=== PATIENT | male | born 1955 | race Caucasian/White ===

== ENCOUNTER → 2020-10-05 19:49 | Outpatient (ROUT) | payer OTHER, SELFPAY ==
[2020-10-05 20:19] LABS: Add Manual Diff / Slide Review NO; Basophils Absolute Auto 0 /uL (0-100); Basophils Percent Auto 0.7 % (0-2); Eosinophils Absolute Auto 100 /uL (0-450); Hematocrit 41.8 % (41-53); Hemoglobin 13.9 g/dL (13.5-17.5); Lymphocytes Absolute Auto 1200 /uL (1100-4500); Lymphocytes Percent Auto 21.9 % (25-40); Mean Corpuscular HGB Conc 33.4 % (30-36); Mean Corpuscular Hemoglobin 30.8 PG (26-34); Mean Corpuscular Volume 92.2 fL (80-100); Monocytes Absolute Auto 700 /uL (0-900); Monocytes Percent Auto 11.9 % (3-14); Neutrophils Absolute Auto 3500 /uL (1500-7000); Neutrophils Percent Auto 63.5 % (50-75); Platelet Count 234 X10^3/uL (150-400); Red Blood Cell Count 4.53 X10^6/uL (4.5-5.9); Red Cell Distribution Width 12.5 % (11.6-14.8); White Blood Cell Count 5.6 X10^3/uL (4.5-11.0)
[2020-10-05 20:24] LABS: Alanine Aminotransferase 18 IU/L (<50); Albumin 4.4 g/dL (3.5-5.0); Albumin Globulin Ratio 1.7 (1.0-2.8); Alkaline Phosphatase 50 U/L (38-126); Aspartate Aminotransferase 24 IU/L (17-59); Blood Urea Nitrogen 22 mg/dL (9-20); Calcium 9.6 mg/dL (8.4-10.2); Carbon Dioxide 32 mmol/L (22-32); Chloride 103 mmol/L (98-107); Estimated Glomerular Filt Rate > 60.0 mL/min (>60); Globulin 2.6 g/dL (1.7-4.1); Glucose 93 mg/dL (80-110); HEMOLYSIS < 15 (0-50); Potassium 4.2 mmol/L (3.4-5.1); Sodium 139 mmol/L (137-145)
== END ==
PROVIDERS: Family Provider Internal Medicine; PCP Internal Medicine; Visit Provider Internal Medicine
DX: C85.97 Non-Hodgkin lymphoma, unspecified, spleen (principal); R19.04 Left lower quadrant abdominal swelling, mass and lump
CPT/HCPCS: 80053; 85025

== ENCOUNTER → 2020-10-12 10:47 | Outpatient (CLI) | payer OTHER, SELFPAY ==
--- NOTE | 2020-10-12 | DI.CT.S_ITS ---
PROCEDURE: CT ABDOMEN PELVIS W CON INDICATIONS: Left lower quadrant abdominal swelling, mass TECHNIQUE: After the administration of oral and intravenous contrast, 5 mm thick sections acquired from the diaphragms to the symphysis. 5 mm thick coronal and sagittal reformats were performed. For radiation dose reduction, the following was used: automated exposure control, adjustment of mA and/or kV according to patient size. COMPARISON: [facility], PET/[facility] WHOLE BODY EXTENDED, 12/21/2012, 11:27. [facility], CT, CHEST/ABD/PEL WITH CONTRAST, 01/30/2014, 9:01. [facility], CT, NECK/CHEST/ABD/PEL W CONTRAST, 09/18/2014, 10:14. [facility], CT, ABDOMEN/PELVIS WITH CONTRAST, 08/19/2013, 7:58. FINDINGS: Image quality: Excellent. ABDOMEN: Lung bases: Lung bases are clear. Heart size is normal. Small hiatal hernia. Solid organs: Liver is normal in size and enhancement. Gallbladder is normal. Biliary system is non-dilated. Pancreas enhances normally. Spleen is normal in size and enhancement. No adrenal nodules. Kidneys are normal in size and enhancement, without hydronephrosis. Peritoneum and bowel: There is proximal small bowel wall thickening involving jejunum. No CT findings to suggest small bowel obstruction. There is a moderate amount of stool in colon. A small amount of free fluid is present. No free air. Nodes and vessels: There is marked mesenteric lymphadenopathy with a large bilobed conglomerate mass measuring 5.4 cm AP x 8.7 cm transverse x 11.4 cm cephalocaudal. Numerous smaller mesenteric lymph nodes are noted. There is also retroperitoneal lymphadenopathy. For example, there is a 2.5 x 52.4 cm aortocaval lymph node. There is bilateral iliac lymphadenopathy. For example, a 1.7 cm right internal iliac lymph node is identified. There is a 1.5 cm left proximal external iliac lymph node. Bilateral distal external iliac lymph nodes are seen, measuring 1.6 cm on the right and 1.2 cm on the left. No retroperitoneal or mesenteric adenopathy. Aorta and inferior vena cava are normal in caliber. Miscellaneous: No ventral hernias. PELVIS: Genitourinary: Bladder wall thickness is normal. Prostate is prominent. Miscellaneous: No inguinal hernias. A borderline sized right inguinal lymph node measures 1.2 x 0.8 cm. Bones: No suspicious bony lesions. No vertebral body compression fractures. IMPRESSION: 1. Extensive lymphadenopathy in mesentery, retroperitoneum, and bilateral iliac lymph node chains consistent with recurrent lymphoma. The largest pro mass is seen in the mesentery measuring 5.4 x 8.7 x 11.4 cm. A borderline sized right inguinal lymph node is indeterminate. 2. There is proximal small bowel wall thickening involving jejunum. No findings to suggest small bowel obstruction. 3. Small amount of ascites. Dictated by: Kristina Carter M.D. on 10/12/2020 at 17:48 Approved by: Kristina Carter M.D. on 10/12/2020 at 18:30
== END ==
PROVIDERS: Family Provider Internal Medicine; PCP Internal Medicine; Referring Provider Internal Medicine; Visit Provider Internal Medicine
DX: R59.0 Localized enlarged lymph nodes (principal); R18.8 Other ascites
CPT/HCPCS: 74177; Q9967

== ENCOUNTER 2020-11-02 09:39 | Outpatient (CLI) | payer OTHER, SELFPAY ==
[2020-11-02] VITALS (9 sets, daily range): BP systolic 125–156; BP diastolic 76–96; PULSE 61–71; RESP 15–32; TEMP 36.1–36.4; O2SAT 96–99; BMI 26.8
[2020-11-02 10:04] LABS: Add Manual Diff / Slide Review NO; Basophils Absolute Auto 0 /uL (0-100); Basophils Percent Auto 0.5 % (0-2); Eosinophils Absolute Auto 100 /uL (0-450); Eosinophils Percent Auto 2.6 % (2-4); Hematocrit 40.6 % (41-53); Lymphocytes Absolute Auto 1000 /uL (1100-4500); Lymphocytes Percent Auto 21.6 % (25-40); Mean Corpuscular HGB Conc 34.4 % (30-36); Mean Corpuscular Hemoglobin 31.5 PG (26-34); Mean Corpuscular Volume 91.3 fL (80-100); Monocytes Absolute Auto 600 /uL (0-900); Neutrophils Absolute Auto 3000 /uL (1500-7000); Neutrophils Percent Auto 63.3 % (50-75); Platelet Count 210 X10^3/uL (150-400); Red Blood Cell Count 4.44 X10^6/uL (4.5-5.9); Red Cell Distribution Width 12.7 % (11.6-14.8); White Blood Cell Count 4.7 X10^3/uL (4.5-11.0)
[2020-11-02 10:08] LABS: Prothrombin Time 11.6 SECONDS (10.1-12.7)
[2020-11-02 10:22] LABS: Alanine Aminotransferase 18 IU/L (<50); Albumin 4.4 g/dL (3.5-5.0); Albumin Globulin Ratio 1.5 (1.0-2.8); Alkaline Phosphatase 50 U/L (38-126); Aspartate Aminotransferase 24 IU/L (17-59); BUN Creatinine Ratio 20.9 (6-22); Bilirubin Total 0.8 mg/dL (0.2-1.3); Blood Urea Nitrogen 19 mg/dL (9-20); Calcium 9.3 mg/dL (8.4-10.2); Carbon Dioxide 34 mmol/L (22-32); Chloride 103 mmol/L (98-107); Estimated Glomerular Filt Rate > 60.0 mL/min (>60); Glucose 109 mg/dL (80-110); HEMOLYSIS < 15 (0-50); Sodium 139 mmol/L (137-145); Total Protein 7.4 g/dL (6.3-8.2)
--- NOTE | 2020-11-02 11:05 | DI.CT.S_ITS ---
PROCEDURE: CT BIOPSY ABDOMEN PERCUTANEOUS Sedation analgesia for 30 minutes. INDICATIONS: LOCALIZED ENLARGED LYMPHNODES TECHNIQUE: The indications, alternatives, benefits, risks, and possible complications of the procedure were communicated to the patient. Informed written consent from the patient was obtained and placed in the chart. Continuous EKG and hemodynamic monitoring was started by trained personnel. The patient was brought to the CT suite and biochemical development engineer spiral CT imaging was performed with localization grid. The appropriate site for percutaneous access to the biopsy target was marked, was prepped and draped sterilely, and was infused with local anaesthesia. Under CT guidance, a core biopsy trocar and needle set was advanced to the biopsy target, and specimen(s) were obtained. The trocar and needle were then removed, and the patient was sent for post-procedure monitoring. COMPARISON: None. FINDINGS: Biopsy site: Left anterior peritoneal space near the peritoneal margin anteriorly. Needle: 18 gauge coaxial Temno kit Number of passes: . Four passes for histology into formalin, 2 passes for flow cytometry into RPMI media. Medications: 1% lidocaine for local anaesthesia. IV Fentanyl and Versed for conscious sedation for 30 minutes (see nursing record). Complications: None. IMPRESSION: Successful CT-guided biopsy of the anterior peritoneal mass on the left in this patient with prior history of lymphoma and presumed additional recurrent lymphoma at this time . Dictated by: Colt Jay M.D. on 11/02/2020 at 15:03 Approved by: Colt Jay M.D. on 11/02/2020 at 15:06
[2020-11-02] MEDS: MIDAZOLAM 2 MG/2 ML VIAL IV (11:29)
[2020-11-02] MEDS: fentaNYL 100 MCG/2 ML INJ IV (11:29)
[2020-11-02 12:06] LABS: Prostate Specific Antigen 1.54 ng/mL (0.10-4.00)
--- NOTE | 2020-11-02 12:07 | SUR.PHASEII ---
pt arrived on stretcher from DI. Bandaid CDI. 5lb sand bag on top of site. Will remain supine for 2hr with sandbag in place. VSS will monitor and on cont pulse ox. able to advance to Clear liquid diet at 1300. Hct order to be drawn at 1400.
--- NOTE | 2020-11-02 12:40 | SUR.PHASEII ---
pt in stable condition, vss. pt laying supine in bed, bed in lowest position and call light within reach of pt. Band-aid observed to be c/d/i. pt appears comfortable at this time.
--- NOTE | 2020-11-02 14:06 | SUR.PHASEII ---
LAB HERE FOR BLOOD DRAW, PT TOLERATING JUICE, BANDAID REMAINS DRY AND INTACT.
[2020-11-02 14:23] LABS: Hematocrit 40.2 % (41-53)
== END 2020-11-02 15:00 | disposition home or self-care (01) ==
PROVIDERS: Radiology Diagnostic Radiology; PCP Internal Medicine; Referring Provider Internal Medicine; Visit Provider Internal Medicine
PROC: BR2CZZZ Computerized Tomography (CT Scan) of Pelvis (ICD-10-PCS; CPT 77012; principal; 2020-11-02 11:00)
DX: R59.0 Localized enlarged lymph nodes (principal)
CPT/HCPCS: 36415; 49180; 77012; 80053; 84153; 85014; 85025; 85610; J2250; J3010

== ENCOUNTER → 2020-11-30 10:26 | Outpatient (CLI) | payer OTHER, SELFPAY ==
[2020-11-30 13:01] LABS: COVID19 -Nasal RAPID Negative (Negative)
== END ==
PROVIDERS: PCP Internal Medicine; Visit Provider Surgery
DX: Z20.822 Contact with and (suspected) exposure to COVID-19 (principal)
CPT/HCPCS: 87635; C9803

== ENCOUNTER 2020-12-01 12:25 | Day surgery (SDC) | payer OTHER, SELFPAY ==
[2020-12-01] VITALS (7 sets, daily range): BP systolic 112–145; BP diastolic 72–92; PULSE 60–70; RESP 10–16; TEMP 36.4–36.7; O2SAT 95–100; BMI 26.6
--- NOTE | 2020-12-01 | DI.RAD.S_ITS ---
PROCEDURE: XR CHEST 1V INDICATIONS: PORT A CATH TECHNIQUE: One view of the chest was acquired. COMPARISON: None. FINDINGS: Surgical changes and devices: Port-A-Cath in normal position from right-sided approach. The tip extends into the atrial caval junction. Lungs and pleura: Lungs are clear. No pleural effusions or pneumothorax. Mediastinum: Mediastinal contours appear normal. Heart size is normal. Bones and chest wall: No suspicious bony lesions. Overlying soft tissues appear unremarkable. IMPRESSION: Atrial caval junction Port-A-Cath positioning, from right-sided approach. Dictated by: Colt Jay M.D. on 12/02/2020 at 8:38 Approved by: Colt Jay M.D. on 12/02/2020 at 8:39
[2020-12-01] MEDS: LACTATED RINGERS 1,000 ML 100 ML IV (13:07)
--- NOTE | 2020-12-01 15:05 | P.HP_ITS ---
History of Present Illness History of Present Illness Date Patient Seen: 12/01/20 Time Patient Seen: 15:05 Chief complaint: PORT-A-CATH PLACEMENT Narrative: 65-year-old man with recurrent lymphoma referred for Port-A-Cath placement by Oncology. The he developed left-sided abdominal pain early in 2020 CT scan of the abdomen pelvis demonstrated intra-abdominal lymphadenopathy and ultimately biopsy was performed which demonstrates follicular lymphoma. He is scheduled to begin chemotherapy next week. He has never had a previous indwelling venous catheter. He has complaint of chronic abdominal pain. He is not on anticoagulation or anti-platelet medication. 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 Hx of inguinal herniorrhaphy Family & Social History Family History Other Axillary mass Family history of breast cancer Family history of mastectomy Family hx of lung cancer Social History: household members spouse Tobacco & Substance use: Smoking Status Never smoker alcohol intake current alcohol intake frequency a few times a month Substance Use Type does not use Meds Home Medications and Allergies Home Medications Medication Instructions Recorded Confirmed Type acetaminophen [Tylenol] 1,000 mg PO QD-BID 10/21/20 12/01/20 History cholecalciferol (vitamin D3) 25 mcg PO DAILY 10/21/20 12/01/20 History [Vitamin D3] glucosamine [id number] 1 tab DAILY 10/21/20 12/01/20 History ibuprofen 400 mg PO Q6H PRN 10/21/20 12/01/20 History multivitamin 1 tab DAILY 10/21/20 12/01/20 History allopurinol 300 mg PO DAILY #30 tab 11/24/20 12/01/20 Rx diphenhydramine HCl [Benadryl] 25 mg PO NOW #1 cap 11/24/20 12/01/20 Rx olanzapine 5 - 10 mg PO Q12H PRN #25 tab 11/24/20 12/01/20 Rx ondansetron HCl 8 mg PO Q8H PRN #30 tab 11/24/20 12/01/20 Rx Allergies Allergy/AdvReac Type Severity Reaction Status Date / Time No Known Drug Allergies Allergy Verified 11/02/20 10:24 Review of Systems Review of Systems ROS: Yes All systems reviewed with the patient and are negative except as otherwise documented Exam Vital Signs (past 8 hours): - 12/01/20 12:51 Temperature 98.0 F Pulse Rate 70 Respiratory Rate 16 Blood Pressure 145/85 H Pulse Oximetry 99 Oxygen Delivery Method Room Air Narrative Exam Narrative: General-no acute distress, adult male HEENT-moist mucous membranes, no scleral icterus Neck-supple, full range of motion Chest- non labored respirations, clear to auscultation bilaterally Cardiac-regular rate no peripheral edema Abdomen-soft nondistended Extremities-warm, well perfused Neurological-alert and oriented, no focal deficits Assessment & Plan Assessment & Plan narrative: 65-year-old man with recurrent follicular lymphoma here for Port-A-Cath placement. We discussed the technical nature of the Port-A-Cath placement. Procedural risks including bleeding infection embolism pneumothorax device malfunction were discussed. His questions have been answered he is in agreement with this plan. Quality MIPS - Admit Advanced Care Plan / Current Medications Measures: #47 ? Advanced Care Plan Clinician documentation instruction: document at admission. [] I confirmed that the patient's Advance Care Plan is present, code status is documented, or surrogate decision maker is listed in the patient?s medical recor d. [SATISFIES MIPS PERFORMANCE] If Yes, Stop Here [] The patient?s Advance Care plan is not present because: (select) [MIPS PERFORMANCE EXCEPTION/EXCLUSION] [] I confirmed today that the patient does not wish or was not able to name a surrogate decision maker or provide an Advance Care Plan. [] Hospice care is currently being provided or has been provided this calendar year [] I did NOT confirm today the presence of an Advance Care Plan or surrogate decision maker documented within the patient's medical record. [DOES NOT SATISFY MIPS PERFORMANCE] #130 - Documentation of Current Medications in the Medical Record Clinician documentation instruction: use macro the first time you see a patient. [] I have utilized all available immediate resources to obtain, update, or review the patient?s current medications. [SATISFIES MIPS PERFORMANCE] If Yes, Stop Here [] The patient is not eligible for medication reconciliation; the patient is in an emergent medical situation where delaying treatment would jeopardize the patient?s health. [MIPS PERFORMANCE EXCEPTION/EXCLUSION] [] I did NOT confirm, update or review the patient's current list of medications today. [DOES NOT SATISFY MIPS PERFORMANCE] MIPS - CL Central Venous Catheter Placement Measure: #76 ? Prevention of Central Venous Catheter (CVC) ? Related Bloodstream Infection Clinician documentation instruction: use macro every time you place a central line. [] All elements of Maximal Sterile Barrier Technique, including hand hygiene, skin prep, and sterile ultrasound technique (if used) were followed. [SATISFIES MIPS PERFORMANCE] If Yes, Stop Here [] If ?No?, the medical reason all elements were NOT used for medical reason [] (ex. emergent condition). [] Maximal Sterile Barrier Technique was not followed, no reason provided [DOES NOT SATISFY MIPS PERFORMANCE] MIPS - DC Heart Failure Measures: #5 - Heart Failure (HF): Angiotensin-Converting Enzyme (DEONDRE) Inhibitor or Angiotensin Receptor Jennifer (ARB) Therapy for Left Ventricul ar Systolic Dysfunction (LVSD) and #8 - Heart Failure (HF): Beta-Jennifer Therapy for Left Ventricular Systolic Dysfunction (LVSD) Clinician documentation instruction: use macro at every CHF discharge. [] The patient has current or prior documentation of left ventricular ejection fraction (LVEF) less than 40%, or moderate or severely depressed left ventricular systolic function. Answer both: [SATISFIES MIPS PERFORMANCE] [] The patient was prescribed or already taking an Angiotensin-Converting Enzyme (DEONDRE) Inhibitor, or Angiotensin Receptor Jennifer (ARB). [] The patient was prescribed or already taking a beta-jennifer. If Yes to Both, Stop Here [] Patient not prescribed/taking: [MIPS PERFORMANCE EXCEPTION/EXCLUSION] [] DEONDRE or ARB for medical/patient/system reason(s) including [] (ex. allergy, intolerance, contraindication) [] Beta-jennifer for medical/patient/system reason(s) including [] (ex. allergy, intolerance, contraindication) [] Patient not prescribed/taking: [DOES NOT SATISFY MIPS PERFORMANCE] [] DEONDRE or ARB, no reason given [] Beta-jennifer, no reason given
[2020-12-01] MEDS: CEFAZOLIN 2 GM/100 ML FROZ.PIGGY IV (15:38)
--- NOTE | 2020-12-01 16:03 | SUR.OPER ---
Supine on padded OR bed, head on gel donut, left arm secured on padded arm boards at <90 degrees abduction, right arm padded and tucked at side, legs uncrossed, safety belt at thigh, tape over blanket over lower legs.
[2020-12-01] MEDS: BUPIVACAINE 0.25% (PF) VIAL 30 ML INJ (16:08)
[2020-12-01] MEDS: HEPARIN 5,000 UNIT, SODIUM CHLORIDE 0.9% 50 ML IV (16:10)
[2020-12-01] MEDS: hydrOXYzine pamoate 25 MG CAPSULE PO (16:52)
[2020-12-01] MEDS: HYDROCODONE/ACET 5/325 TABLET 1 TAB PO (16:52)
[2020-12-01] MEDS: ONDANSETRON 4 MG/2 ML INJ IV (16:52)
--- NOTE | 2020-12-01 17:00 | PM.OP.1 ---
Operative Date/Time/Diagnoses Date of procedure: 12/01/20 Time of procedure: 17:00 Pre-op diagnosis: lymphoma Post-op diagnosis: same Procedure & Clinicians Procedure: port a cath placement Same procedure as scheduled: Yes Indications: 65M with lymphoma for port a cath placement Surgeon: Efrain Eng Anesthesia Type: General Operative Notes Findings: tip of cath within the SVC Estimated Blood Loss (mL): 20 Procedure in detail: Patient was brought to the operating room placed supine on table. Bilateral lower extremity compressive devices were applied. General anesthesia was induced and he was intubated with an LMA. He was then prepped and draped in usual sterile fashion. Time-out was performed ensure the correct patient procedure necessary equipment within the operating room. He received 2 g of Ancef prior to incision. Under ultrasound guidance the right internal jugular vein was accessed under direct visualization. The guidewire was then threaded through the needle. Its placement was then confirmed using fluoroscopy. The dilator was then placed over the guidewire. The catheter was then inserted through the sheath. Placement was again confirmed with fluoroscopy. A subcutaneous pocket was made in the right chest wall. The tunneler device was used to move the catheter from the neck to the chest pocket. The port was attached after it was primed with heparined saline. The port was tested to ensure that it flushed easily and had good blood return. The port was then secured to the underlying fascia using interupted 0 Prolene suture. Hemostasis was achieved. The wound was irrigated with sterile saline. The subcutaneous tissues were reapproximated with the 3 0 Vicryl and then skin closed with 4-0 Monocryl. The skin was sealed with Dermabond. Patient tolerated procedure well. The sponge and instrument count at the end operation was correct. Patient emerged from general anesthesia was extubated and taken to the postoperative care unit in stable condition Complications: none Post-operative Condition: stable Disposition: same day surgery
== END 2020-12-01 17:15 | disposition home or self-care (01) ==
PROVIDERS: PCP Internal Medicine; Referring Provider Surgery; Visit Provider Surgery
PROC: (CPT 36561; principal; 2020-12-01 13:45)
DX: C82.93 Follicular lymphoma, unspecified, intra-abdominal lymph nodes (principal)
CPT/HCPCS: 36561; 71045; 76000; 82962; C1788; J0690; J1100; J1644; J2250; J2405; J3010

== ENCOUNTER → 2021-03-01 09:39 | Outpatient (CLI) | payer OTHER, SELFPAY ==
--- NOTE | 2021-03-01 10:53 | DI.CT.S_ITS ---
PROCEDURE: CT CHEST ABD PEL W CON INDICATIONS: Follow-up lymphoma after chemo TECHNIQUE: After the administration of oral and intravenous contrast, axial sections acquired from the supraclavicular neck to the pubic symphysis. Coronal and sagittal reformats were performed. For radiation dose reduction, the following was used: automated exposure control, adjustment of mA and/or kV according to patient size. COMPARISON: [facility], [place] FUSION WHOLE BODY, 10/28/2020, 7:56. [facility], CT, CT ABDOMEN PELVIS W CON, 10/12/2020, 11:53. [facility], CT, CHEST/ABD/PEL WITH CONTRAST, 01/30/2014, 9:01. FINDINGS: CHEST: Lungs: A previously described 5 mm lesion seen in the right middle lobe is grossly unchanged since 10/28/20. Pleura: No pleural effusions or pneumothorax. Heart: Heart size is normal. No pericardial effusion. Coronary artery calcifications are noted. Chest nodes: Normal. Thyroid gland: Normal. Aorta: Normal in size. Pulmonary arteries: Normal. Esophagus: Normal. ABDOMEN: Liver: Nonspecific subcentimeter hypodensity seen in the dome on image 53/2. This is grossly unchanged Gallbladder: Normal. Bile ducts: Normal. Pancreas: Normal. Spleen: Normal. Adrenals: Normal. Kidneys and ureters: Normal. Stomach and duodenum: Normal. Bowel: Normal appendix. No evidence of bowel obstruction. Incidental colonic diverticulosis. Other: No free fluid or air. Abdominal nodes: There is interval improvement in previously seen confluent and large mesenteric and retroperitoneal lymph nodes, for example on image 89/2 2.2 x 2.2 cm residual lymphoid tissue seen previously measured 5.4 x 6.6 cm. Additional patient financial representative aortocaval lymph node on image 79/2 measures 1.1 x 0.77 cm, previously 2.2 x 1.6 cm Aorta and IVC: Normal in size. Ventral wall: Normal. PELVIS: Bladder: Normal. Inguinal region: Small fat containing right inguinal hernia. Pelvic nodes: Normal. Bones: Spondylytic changes and facet arthropathy. No vertebral body compression fracture. Previously described hypermetabolic osseous lesions on the prior PET-CT dated 10/28/20 are not well visualized on the current examination although this could be due to imaging modality and recommend scintigraphic follow-up. IMPRESSION: Interval improvement in diffuse confluent mesenteric and retroperitoneal lymphadenopathy since 10/12/20. Previously described bone lesions on the prior PET-CT are not well seen on the current examination, although recommend scintigraphic follow-up. Dictated by: Ta Martin M.D. on 03/01/2021 at 12:21 Approved by: Ta Martin M.D. on 03/01/2021 at 12:40
== END ==
PROVIDERS: PCP Internal Medicine; Referring Provider Internal Medicine; Visit Provider Internal Medicine
DX: C82.90 Follicular lymphoma, unspecified, unspecified site (principal); R91.1 Solitary pulmonary nodule; I10 Essential (primary) hypertension; K40.90 Unilateral inguinal hernia, without obstruction or gangrene, not specified as recurrent; I25.10 Atherosclerotic heart disease of native coronary artery without angina pectoris; Z92.21 Personal history of antineoplastic chemotherapy
CPT/HCPCS: 71260; 74177

== ENCOUNTER → 2021-08-31 07:24 | Outpatient (CLI) | payer OTHER, SELFPAY ==
[2021-08-31 08:23] LABS: Influenza A - CEPHEID Flu A NEGATIVE (NEGATIVE); Influenza B - CEPHEID Flu B NEGATIVE (NEGATIVE)
[2021-08-31 09:26] LABS: COVID-19 CEPHEID PCR (VTM/NP) POSITIVE (Negative)
== END ==
PROVIDERS: PCP Internal Medicine; Visit Provider Nurse Practitioner Family
DX: Z20.822 Contact with and (suspected) exposure to COVID-19 (principal); R52 Pain, unspecified; R05.9 Cough, unspecified
CPT/HCPCS: 87502; U0003

== ENCOUNTER → 2022-02-15 07:34 | Outpatient (CLI) | payer OTHER, SELFPAY | PROVIDERS: PCP Internal Medicine; Visit Provider Physician Assistant | DX: R21 Rash and other nonspecific skin eruption (principal) | CPT/HCPCS: 87070; 87077; 87147; 87186; 87205 ==

== ENCOUNTER → 2022-03-22 08:13 | Outpatient (CLI) | payer MEDICARE, SELFPAY ==
[2022-03-22 10:32] LABS: Cholesterol 232 mg/dL (140-199); HDL Cholesterol 53 mg/dL (40-60); LDL Cholesterol Calculated 162 mg/dL (<100); Triglycerides 86 mg/dL (35-150)
[2022-03-22 11:04] LABS: TSH w/ Reflex to FT4 1.79 uIU/mL (0.47-4.68)
[2022-03-22 11:06] LABS: Prostate Specific Antigen 2.13 ng/mL (0.10-4.00)
[2022-07-05 08:41] LABS: Add Manual Diff / Slide Review NO; Basophils Absolute Auto 100 /uL (0-100); Basophils Percent Auto 1.2 % (0-2); Eosinophils Absolute Auto 200 /uL (0-450); Eosinophils Percent Auto 3.7 % (2-4); Hematocrit 37.6 % (41-53); Hemoglobin 13.3 g/dL (13.5-17.5); Lymphocytes Absolute Auto 600 /uL (1100-4500); Lymphocytes Percent Auto 11.1 % (25-40); Mean Corpuscular HGB Conc 35.3 % (30-36); Mean Corpuscular Hemoglobin 31.9 PG (26-34); Mean Corpuscular Volume 90.5 fL (80-100); Monocytes Absolute Auto 800 /uL (0-900); Monocytes Percent Auto 15.2 % (3-14); Neutrophils Absolute Auto 3500 /uL (1500-7000); Neutrophils Percent Auto 68.8 % (50-75); Platelet Count 260 X10^3/uL (150-400); Red Blood Cell Count 4.15 X10^6/uL (4.5-5.9); Red Cell Distribution Width 12.4 % (11.6-14.8)
[2022-07-05 08:50] LABS: Alanine Aminotransferase 19 IU/L (<50); Albumin 4.1 g/dL (3.5-5.0); Albumin Globulin Ratio 1.3 (1.0-2.8); Alkaline Phosphatase 66 U/L (38-126); Aspartate Aminotransferase 20 IU/L (17-59); Bilirubin Total 0.9 mg/dL (0.2-1.3); Blood Urea Nitrogen 18 mg/dL (9-20); Calcium 9.3 mg/dL (8.4-10.2); Carbon Dioxide 28 mmol/L (22-32); Chloride 103 mmol/L (98-107); Estimated Glomerular Filt Rate > 60 mL/min (>60); Globulin 3.1 g/dL (1.7-4.1); Glucose 132 mg/dL (80-110); HEMOLYSIS 38 (0-50); Lactate Dehydrogenase 471 U/L (313-618); Sodium 140 mmol/L (137-145); Total Protein 7.2 g/dL (6.3-8.2)
[2022-07-08 13:09] LABS: Beta-2-Microglobulin 1.4 mg/L (0.6-2.4)
== END ==
PROVIDERS: Internal Medicine Medical Oncology; PCP Internal Medicine; Referring Provider Internal Medicine; Visit Provider Internal Medicine
DX: C82.93 Follicular lymphoma, unspecified, intra-abdominal lymph nodes (principal); E78.2 Mixed hyperlipidemia; N40.0 Benign prostatic hyperplasia without lower urinary tract symptoms; Q82.8 Other specified congenital malformations of skin; R59.0 Localized enlarged lymph nodes
CPT/HCPCS: 36415; 80053; 80061; 82232; 83615; 84153; 84443; 85025

== ENCOUNTER → 2023-01-10 10:24 | Outpatient (CLI) | payer MEDICARE, SELFPAY ==
--- NOTE | 2023-01-10 10:25 | DI.CT.S_ITS ---
PROCEDURE: CT CHEST ABD PEL W CON INDICATIONS: lymphoma restaging TECHNIQUE: After the administration of oral and intravenous contrast, axial sections acquired from the supraclavicular neck to the pubic symphysis. Coronal and sagittal reformats were performed. For radiation dose reduction, the following was used: automated exposure control, adjustment of mA and/or kV according to patient size. COMPARISON: [facility], CT, CT CHEST ABD PEL W CON, 03/01/2021, 10:58. FINDINGS: Image quality: Excellent. CHEST: Lower Neck: No enlarged lymph nodes. Thyroid: Within normal limits. Axillae: No enlarged lymph nodes. Chest Wall: Unremarkable. Lungs and Airways: No consolidation or suspicious nodules. Stable juxtapleural nodule in the right middle lobe, presumably an intrapulmonary lymph node. Pleura: No pneumothorax or pleural effusions. Heart: Heart size is normal. No pericardial effusion. Thoracic Vessels: The aorta and pulmonary arteries demonstrate normal size. Mediastinum and Donna: No enlarged lymph nodes. Esophagus: No wall thickening. No hiatal hernia. ABDOMEN: Liver: Subcentimeter hypoattenuating lesion in segment 4A and 7, too small to characterize by CT. These are relatively stable compared with prior. Gallbladder: Unremarkable. Biliary ducts: Unremarkable. Pancreas: Unremarkable. Spleen: Normal size. Adrenal Glands: Unremarkable. Kidneys and Ureters: Unremarkable. Stomach and Bowel: Stomach, small bowel loops, and colon are unremarkable. Peritoneum: Central mesenteric fat stranding, similar to prior. No measurable lymph node. Ventral Wall: No hernia. Abdominal Nodes: No retroperitoneal or mesenteric adenopathy by size criteria. Vessels: Aorta and inferior vena cava are normal in size. PELVIS: Pelvic Organs: Unremarkable. Bladder: Unremarkable. Pelvic Nodes: No enlarged lymph nodes. Miscellaneous: No inguinal hernias are seen. Bones: Unremarkable. IMPRESSION: 1. Stable central mesenteric fat stranding, without measurable lymph node. No lymphadenopathy by size criteria. Dictated by: Obed Umanzor M.D. on 01/10/2023 at 13:29 Approved by: Obed Umanzor M.D. on 01/10/2023 at 13:35
== END ==
PROVIDERS: PCP Internal Medicine; Referring Provider Internal Medicine Medical Oncology; Visit Provider Internal Medicine Medical Oncology
DX: C82.90 Follicular lymphoma, unspecified, unspecified site (principal)
CPT/HCPCS: 71260; 74177; Q9967

== ENCOUNTER → 2023-06-02 08:41 | Outpatient (CLI) | payer MEDICARE, SELFPAY ==
[2023-06-02 10:56] LABS: Cholesterol 213 mg/dL (140-199); HDL Cholesterol 48 mg/dL (40-60); LDL Cholesterol Calculated 152 mg/dL (<100); Triglycerides 65 mg/dL (35-150)
[2023-06-02 11:22] LABS: Prostate Specific Antigen 2.16 ng/mL (0.10-4.00)
== END ==
PROVIDERS: PCP Internal Medicine; Referring Provider Internal Medicine; Visit Provider Internal Medicine
DX: N40.0 Benign prostatic hyperplasia without lower urinary tract symptoms (principal)
CPT/HCPCS: 36415; 80061; 84153

== ENCOUNTER 2024-01-15 01:27 | Emergency (ER) | payer MEDICARE, SELFPAY ==
[2024-01-15] VITALS (9 sets, daily range): BP systolic 140–193; BP diastolic 79–93; PULSE 60–75; RESP 18–25; TEMP 36.1; O2SAT 97–100; BMI 27.9
[2024-01-15] MEDS: ONDANSETRON 4 MG/2 ML INJ IV (01:50)
[2024-01-15 01:51] LABS: Add Manual Diff / Slide Review NO; Basophils Absolute Auto 0 /uL (0-100); Basophils Percent Auto 0.4 % (0-2); Eosinophils Absolute Auto 100 /uL (0-450); Eosinophils Percent Auto 1.2 % (2-4); Hematocrit 44.7 % (41-53); Hemoglobin 15.5 g/dL (13.5-17.5); Lymphocytes Absolute Auto 1800 /uL (1100-4500); Lymphocytes Percent Auto 14.7 % (25-40); Mean Corpuscular HGB Conc 34.8 % (30-36); Mean Corpuscular Hemoglobin 32.3 PG (26-34); Mean Corpuscular Volume 92.8 fL (80-100); Monocytes Absolute Auto 1600 /uL (0-900); Monocytes Percent Auto 12.7 % (3-14); Neutrophils Absolute Auto 8800 /uL (1500-7000); Platelet Count 263 X10^3/uL (150-400); Red Blood Cell Count 4.81 X10^6/uL (4.5-5.9); Red Cell Distribution Width 12.6 % (11.6-14.8); White Blood Cell Count 12.4 X10^3/uL (4.5-11.0)
[2024-01-15 02:01] LABS: Alanine Aminotransferase 35 IU/L (<50); Albumin Globulin Ratio 1.9 (1.0-2.8); Alkaline Phosphatase 80 U/L (38-126); Aspartate Aminotransferase 33 IU/L (17-59); BUN Creatinine Ratio 18.8 (6-22); Bilirubin Total 1.2 mg/dL (0.2-1.3); Blood Urea Nitrogen 18 mg/dL (9-20); Calcium 9.8 mg/dL (8.4-10.2); Carbon Dioxide 19 mmol/L (22-32); Chloride 105 mmol/L (98-107); Estimated Glomerular Filt Rate > 60 mL/min (>60); Globulin 2.6 g/dL (1.7-4.1); Glucose 179 mg/dL (80-110); HEMOLYSIS 29 (0-50); Lipase 127 U/L (23-300); Potassium 3.2 mmol/L (3.4-5.1); Sodium 137 mmol/L (137-145); Total Protein 7.6 g/dL (6.3-8.2)
--- NOTE | 2024-01-15 02:07 | ED_ITS ---
HPI - General Adult General Chief complaint: Abdominal Pain Stated complaint: abd pain, bp 190/100 feverish Time Seen by Provider: 01/15/24 01:38 Source: patient and family Mode of arrival: Wheelchair History of Present Illness HPI narrative: Patient is a 68-year-old male who arrives in the emergency department for abdominal discomfort and nausea high blood pressure and generally not feeling very well. Patient was woken from sleep approximately 1 hour prior to arrival here with the symptoms. Has had hernia repair but that was back when he was less than 12 years old but otherwise no abdominal surgeries. Has not had a bowel movement or urinated since the onset of the symptoms. Describes the pain as in his upper abdomen and right side of his abdomen. Has not tried anything for the symptoms prior to arrival. Related Data Home Medications Medication Instructions Recorded Confirmed ibuprofen 200 mg tablet 400 mg PO Q6H PRN Pain (Scale 10/21/20 05/29/23 Score 4-6) clobetasol 0.05 % topical cream 1 applic topical DAILY 04/13/22 05/29/23 acetaminophen 325 mg capsule 1,000 mg PO QD-BID PRN pain 05/25/22 05/29/23 (Tylenol) cholecalciferol (vitamin D3) 25 25 mcg PO DAILY 05/25/22 05/29/23 mcg (1,000 unit) tablet (Vitamin D3) multivitamin 1 tab PO DAILY 05/25/22 05/29/23 docosahexaenoic acid (dha)-epa 120 1 cap PO DAILY 01/04/23 05/29/23 mg-180 mg capsule (Fish Oil) Allergies Allergy/AdvReac Type Severity Reaction Status Date / Time No Known Drug Allergies Allergy Verified 05/29/23 13:31 Review of Systems Review of Systems Narrative: See HPI ROS Unobtainable: All systems reviewed & are unremarkable except as noted in HPI and below Patient History Medical History Hearing loss, right Eczematous dermatitis Overweight (BMI 25.0-29.9) Rash History of colonic polyps Mixed hyperlipidemia Wears glasses Chronic back pain Tinnitus DJD (degenerative joint disease) Surgical History Anesthesia H/O needle biopsy (~10/2020) Port-A-Cath in place (~11/2020) H/O arthroscopy of right knee (~10/2015) H/O vasectomy Hx of inguinal herniorrhaphy 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 roman catholic (~2002) Family History Brother Cancer Sister Breast cancer History of mastectomy Other Axillary mass Family history of breast cancer Family history of mastectomy Family hx of lung cancer 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 History 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), 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 Smoking Status: Never smoker alcohol intake: current Smoking Status: Never smoker alcohol intake frequency: a few times a month Substance Use Type: does not use Exam Initial Vital Signs Initial Vital Signs: Vital Signs Pulse Rate 67 01/15/24 01:34 Pulse Oximetry 100 01/15/24 01:34 Const General: cooperative and No ill appearing HENMT Head: normal to inspection and normocephalic Resp Effort & Inspection: normal respiratory effort Auscultation: clear to auscultation bilaterally Cardio Rate: regular rate Rhythm: regular rhythm GI Inspection: normal to inspection and non-distended Palpation: soft, No firm, No guarding and tender (Diffuse tenderness) Skin General: no rashes or lesions noted Neuro General: patient alert, patient awake and moves all extremities Speech: speech normal Extrem General: capillary refill normal Course Orders Ordered: ED Orders 01/15/24 01:43 EKG-12 Lead Stat 01/15/24 01:44 Complete Blood Count AUTO DIFF Stat Comprehensive Metabolic Panel Stat ETOH [Ethanol (ETOH)] Stat Lipase Stat 01/15/24 02:08 CT abdomen pelvis w con Stat Ondansetron HCl (Ondansetron 4 Mg Odt) 4 mg PO NOW PRN PRN Reason: Nausea And Vomiting Ondansetron HCl (Ondansetron 4 Mg/2 Ml Inj) 4 mg IV NOW PRN PRN Reason: Nausea And Vomiting Last Admin: 01/15/24 01:50 Dose: 4 mg Documented By: SHANAE Discontinued Medications Sodium Chloride (Normal Saline 0.9%) 1,000 mls @ 1,000 mls/hr IV BOLUS ONE Stop: 01/15/24 03:07 Last Admin: 01/15/24 02:14 Dose: 1,000 mls/hr Documented By: SHANAE Ketorolac Tromethamine (Ketorolac 30 Mg/Ml Vial) 30 mg IV NOW ONE Stop: 01/15/24 02:09 Last Admin: 01/15/24 02:14 Dose: 30 mg Documented By: SHANAE Ondansetron HCl (Ondansetron 4 Mg/2 Ml Inj) 4 mg IV NOW ONE Stop: 01/15/24 02:09 Last Admin: 01/15/24 03:17 Dose: Not Given Pantoprazole Sodium (Pantoprazole 40 Mg Vial) 40 mg IV NOW ONE Stop: 01/15/24 02:10 Last Admin: 01/15/24 02:14 Dose: 40 mg Documented By: SHANAE Vital Signs Vital signs: Vital Signs - 8 hr 01/15/24 01:34 01/15/24 01:35 01/15/24 01:35 Temperature Pulse Rate 67 67 Respiratory Rate Blood Pressure 167/81 H Pulse Oximetry 100 100 Oxygen Delivery Method 01/15/24 01:38 01/15/24 02:00 01/15/24 02:01 Temperature 96.9 F L Pulse Rate 65 63 Respiratory Rate 22 Blood Pressure 167/81 H 193/93 H Pulse Oximetry 100 100 Oxygen Delivery Method Room Air 01/15/24 02:01 01/15/24 02:30 01/15/24 02:31 Temperature Pulse Rate 63 61 60 Respiratory Rate 25 H 23 Blood Pressure Pulse Oximetry 100 99 97 Oxygen Delivery Method 01/15/24 02:31 Temperature Pulse Rate Respiratory Rate Blood Pressure 186/89 H Pulse Oximetry Oxygen Delivery Method Medical Decision Making Lab Data Lab results reviewed: Yes I reviewed the patient's lab results. 01/15/24 01:44 01/15/24 01:44 Labs: Lab Results 01/15/24 Range/Units 01:44 WBC 12.4 H (4.5-11.0) X10^3/uL RBC 4.81 (4.5-5.9) X10^6/uL Hgb 15.5 (13.5-17.5) g/dL Hct 44.7 (41-53) % MCV 92.8 (80-100) fL MCH 32.3 (26-34) PG MCHC 34.8 (30-36) % RDW 12.6 (11.6-14.8) % Plt Count 263 (150-400) X10^3/uL Neut % (Auto) 71.0 (50-75) % Lymph % (Auto) 14.7 L (25-40) % [place] % (Auto) 12.7 (3-14) % Eos % (Auto) 1.2 L (2-4) % Baso % (Auto) 0.4 (0-2) % Neut # (Auto) 8800 H (2642-2942) /uL Lymph # (Auto) 1800 (2982-3707) /uL [place] # (Auto) 1600 H (0-900) /uL Eos # (Auto) 100 (0-450) /uL Baso # (Auto) 0 (0-100) /uL Sodium 137 (137-145) mmol/L Potassium 3.2 L (3.4-5.1) mmol/L Chloride 105 (98-107) mmol/L Carbon Dioxide 19 L (22-32) mmol/L BUN 18 (9-20) mg/dL Creatinine 0.96 (0.66-1.25) mg/dL Estimated GFR > 60 (>60) mL/min BUN/Creatinine Ratio 18.8 (6-22) Glucose 179 H (80-110) mg/dL Calcium 9.8 (8.4-10.2) mg/dL Total Bilirubin 1.2 (0.2-1.3) mg/dL AST 33 (17-59) IU/L ALT 35 (<50) IU/L Alkaline Phosphatase 80 (38-126) U/L Total Protein 7.6 (6.3-8.2) g/dL Albumin 5.0 (3.5-5.0) g/dL Globulin 2.6 (1.7-4.1) g/dL Albumin/Globulin Ratio 1.9 (1.0-2.8) Lipase 127 (23-300) U/L Ethyl Alcohol < 10 ( - 10) mg/dL Imaging Data CT scan - abdomen/pelvis: Radiologist's Impression: Increased attenuation of mesenteric root fact, 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 No other abnormalities identified ECG Data Attestation: I personally reviewed and interpreted this ECG as follows: Interpretation: Sinus rhythm Ventricular rate is 60 Normal axis Normal QRS Normal QTC No ST T wave changes MDM Narrative Medical decision making narrative: After medications here in the emergency department patient's symptoms greatly improved. He was afebrile. His labs are unremarkable. No signs of bowel obstruction or appendicitis or kidney stone. No indication for emergent surgical consultation. 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 We did discuss the findings of the CT scan today. He has been followed by Oncology. There was no indication for antibiotics. Plan will be is to discharge patient home with instructions to start on a proton pump inhibitor for the next 14 days. He can purchase this [id number]. He was given return precautions and follow-up instructions. He expressed understanding and agreement. Discharge Plan Departure Patient Disposition: Home Clinical Impression: Abdominal pain Instructions: DI for Abdominal Pain-Adult Activity Restrictions/Additional Instructions: Continue to take all of your medications as directed. Recommend that you contact your primary doctor for a follow-up to discuss the findings of the CT scan today. I would recommend that you start on either Nexium or Prilosec. The generic versions of the medication are appropriate as well. Return to the emergency department for new or worsening symptoms. Prescriptions: No Action ibuprofen 200 mg Tablet 400 mg PO Q6H PRN (Reason: Pain (Scale Score 4-6)) clobetasol 0.05 % Cream 1 applic TOPICAL DAILY acetaminophen [Tylenol] 325 mg capsule 1,000 mg PO QD-BID PRN (Reason: pain) cholecalciferol (vitamin D3) [Vitamin D3] 25 mcg (1,000 unit) tablet 25 mcg PO DAILY multivitamin Tablet 1 tab PO DAILY Fish Oil 120-180 mg Capsule 1 cap PO DAILY Referrals: Vipin Gee MD [Primary Care Provider] - Stand Alone Forms: Patient Portal/API
--- NOTE | 2024-01-15 02:08 | DI.CT.S_ITS ---
PROCEDURE: CT ABDOMEN PELVIS W CON INDICATIONS: Generalized abd pain TECHNIQUE: After the administration of intravenous contrast, axial sections acquired from the lung bases to the pubic symphysis. Coronal and sagittal reformats were performed. For radiation dose reduction, the following was used: automated exposure control, adjustment of mA and/or kV according to patient size. COMPARISON: [facility], CT, CT CHEST ABD PEL W CON, 01/10/2023, 11:53. [facility], CT, CT CHEST ABDOMEN PELVIS WITH CONTRAST, 08/22/2023, 9:53. [facility], CT, CT ABDOMEN PELVIS W CON, 10/12/2020, 11:53. FINDINGS: Image quality: Diagnostic. Lower Chest: No pleural effusion. ABDOMEN: Liver: No solid mass. Small cyst at the dome of the liver, unchanged. Gallbladder: No radiopaque gallstones or wall thickening. Biliary ducts: No biliary dilation. Pancreas: No ductal dilation. Spleen: Size is within normal limits. Adrenal Glands: No adrenal nodules. Kidneys and Ureters: No hydronephrosis. No solid mass. No complex renal cystic lesion which requires follow up. Stomach and Bowel: Normal colonic caliber, without significant wall thickening. Normal appendix. Peritoneum: No significant ascites. Mild stranding in the mesentery, (2/46), stable compared to 08/22/2023. No free air. Ventral Wall: No significant ventral hernia. Abdominal Nodes: No retroperitoneal or mesenteric adenopathy by size criteria. No significant periaortic thickening. Vessels: Aorta and inferior vena cava are normal in size. PELVIS: Pelvic Organs: Prostatomegaly. Bladder: No stone. Pelvic Nodes: No enlarged lymph nodes. Miscellaneous: Possible small fat containing inguinal hernias. Bones: No aggressive osseous abnormality. Mild degenerative changes. IMPRESSION: 1. No significant interval change. Mild in stranding in the left mesentery. No enlarged lymph nodes or mass. 2. No diverticulitis. No hydronephrosis. No significant discrepancy with the overnight preliminary interpretation. Dictated by: Raman Munguia M.D. on 01/15/2024 at 8:03 Approved by: Raman Munguia M.D. on 01/15/2024 at 8:12
[2024-01-15] MEDS: PANTOPRAZOLE 40 MG VIAL IV (02:14)
[2024-01-15] MEDS: SODIUM CHLORIDE 0.9% 1,000 ML 1000 ML IV (02:14)
[2024-01-15] MEDS: KETOROLAC 30 MG/ML VIAL IV (02:14)
[2024-01-15 02:49] LABS: Ethanol (ETOH) < 10 mg/dL
--- NOTE | 2024-01-15 03:19 | PC.NURSE ---
Pt placed on 2 L Nasal Cannula. Pt noted to drop to 88 when attempting to sleep.
== END 2024-01-15 04:05 | disposition home or self-care (01) ==
PROVIDERS: Emergency Provider Emergency Medicine; PCP Internal Medicine
DX: R10.9 Unspecified abdominal pain (principal); I10 Essential (primary) hypertension
CPT/HCPCS: 36415; 74177; 80053; 80320; 83690; 85025; 93005; 96361; 96374; 96375; 99284; C9113; J1885; J2405; Q9967

== ENCOUNTER → 2024-03-02 07:46 | Outpatient (CLI) | payer MEDICARE, SELFPAY | PROVIDERS: PCP Internal Medicine; Visit Provider Nurse Practitioner Family | DX: J02.9 Acute pharyngitis, unspecified (principal) | CPT/HCPCS: 87070; 87077; 87147 ==

== ENCOUNTER 2024-03-11 23:08 | Emergency (ER) | payer MEDICARE, SELFPAY ==
[2024-03-11 23:33] VITALS: BP 176/80; PULSE 60; RESP 22; TEMP 36.4; O2SAT 99; BMI 27.9
--- NOTE | 2024-03-11 23:40 | EKG_ITS ---
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
[2024-03-11] MEDS: ONDANSETRON 4 MG/2 ML INJ IV (23:52)
[2024-03-11] MEDS: KETOROLAC 30 MG/ML VIAL 15 MG IV (23:55)
[2024-03-12 00:01] LABS: Add Manual Diff / Slide Review NO; Basophils Absolute Auto 100 /uL (0-100); Basophils Percent Auto 0.7 % (0-2); Eosinophils Absolute Auto 200 /uL (0-450); Eosinophils Percent Auto 1.8 % (2-4); Hematocrit 40.9 % (41-53); Hemoglobin 14.5 g/dL (13.5-17.5); Lymphocytes Absolute Auto 1700 /uL (1100-4500); Lymphocytes Percent Auto 15.9 % (25-40); Mean Corpuscular HGB Conc 35.5 % (30-36); Mean Corpuscular Hemoglobin 32.8 PG (26-34); Mean Corpuscular Volume 92.2 fL (80-100); Monocytes Absolute Auto 1100 /uL (0-900); Monocytes Percent Auto 10.9 % (3-14); Neutrophils Absolute Auto 7400 /uL (1500-7000); Neutrophils Percent Auto 70.7 % (50-75); Platelet Count 305 X10^3/uL (150-400); Red Blood Cell Count 4.43 X10^6/uL (4.5-5.9); Red Cell Distribution Width 12.9 % (11.6-14.8); White Blood Cell Count 10.4 X10^3/uL (4.5-11.0)
[2024-03-12 00:15] LABS: Alanine Aminotransferase 23 IU/L (<50); Albumin 4.6 g/dL (3.5-5.0); Albumin Globulin Ratio 1.7 (1.0-2.8); Alkaline Phosphatase 72 U/L (38-126); Aspartate Aminotransferase 28 IU/L (17-59); BUN Creatinine Ratio 18.4 (6-22); Bilirubin Total 0.8 mg/dL (0.2-1.3); Blood Urea Nitrogen 18 mg/dL (9-20); Calcium 9.3 mg/dL (8.4-10.2); Carbon Dioxide 21 mmol/L (22-32); Chloride 105 mmol/L (98-107); Estimated Glomerular Filt Rate > 60 mL/min (>60); Globulin 2.7 g/dL (1.7-4.1); Glucose 180 mg/dL (80-110); HEMOLYSIS 16 (0-50); Lipase 107 U/L (23-300); Potassium 3.2 mmol/L (3.4-5.1); Sodium 136 mmol/L (137-145); Total Protein 7.3 g/dL (6.3-8.2)
--- NOTE | 2024-03-12 01:20 | PC.NURSE ---
Pt reports that he is continuing to have abdominal pain. Dr Babb notified. Verbal order received for IV hydromorphone 0.5 mg
[2024-03-12] MEDS: HYDROMORPHONE 0.5 MG INJ IV (01:26)
[2024-03-12 02:11] VITALS: PULSE 56; O2SAT 94
[2024-03-12 02:30] VITALS: BP 162/83; PULSE 58; O2SAT 95
--- NOTE | 2024-03-12 02:41 | ED_ITS ---
HPI - Abdominal Pain General Chief Complaint: Abdominal Pain Stated Complaint: abd pain Time Seen by Provider: 03/12/24 02:40 Source: patient Mode of arrival: Ambulatory History of Present Illness HPI narrative: Patient 68-year-old male history of recurrent lymphoma presents today with abdominal pain nausea and vomiting. It started abruptly about 7 hours ago he is thrown up once. This happened January 14 in his similar fashion. He has not had any surgeries. But has had some sort of mesenteric biopsy. He has had no change in bowel movements. On January 14 he was seen in the ED he had blood work and a CT scan which did not show any evidence of recurrent disease Related Data Home Medications Medication Instructions Recorded Confirmed ibuprofen 200 mg tablet 400 mg PO Q6H PRN Pain (Scale 10/21/20 05/29/23 Score 4-6) clobetasol 0.05 % topical cream 1 applic topical DAILY 04/13/22 05/29/23 acetaminophen 325 mg capsule 1,000 mg PO QD-BID PRN pain 05/25/22 05/29/23 (Tylenol) cholecalciferol (vitamin D3) 25 25 mcg PO DAILY 05/25/22 05/29/23 mcg (1,000 unit) tablet (Vitamin D3) multivitamin 1 tab PO DAILY 05/25/22 05/29/23 docosahexaenoic acid (dha)-epa 120 1 cap PO DAILY 01/04/23 05/29/23 mg-180 mg capsule (Fish Oil) Previous Rx's Medication Instructions Recorded amoxicillin 500 mg capsule 500 mg PO BID #20 caps 03/03/24 hydrocodone 5 mg-acetaminophen 325 1 tab PO Q6H PRN pain #10 tabs 03/12/24 mg tablet ondansetron 4 mg disintegrating 4 mg PO Q8H PRN nausea and 03/12/24 tablet vomiting #20 tabs Allergies Allergy/AdvReac Type Severity Reaction Status Date / Time No Known Drug Allergies Allergy Verified 03/02/24 07:44 Patient History Medical History Hearing loss, right Eczematous dermatitis Overweight (BMI 25.0-29.9) Rash History of colonic polyps Mixed hyperlipidemia Wears glasses Chronic back pain Tinnitus DJD (degenerative joint disease) Surgical History Anesthesia H/O needle biopsy (~10/2020) Port-A-Cath in place (~11/2020) H/O arthroscopy of right knee (~10/2015) H/O vasectomy Hx of inguinal herniorrhaphy 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 roman catholic (~2002) Family History Brother Cancer Sister Breast cancer History of mastectomy Other Axillary mass Family history of breast cancer Family history of mastectomy Family hx of lung cancer 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 HEENT: Head atraumatic,EOMI, pupils reactive, face symmetric, moist mucous membranes CARDIOVASCULAR: Regular rate and rhythm without murmurs, rubs or gallops. RESPIRATORY: Breath sounds equal bilaterally, no wheezes rales or rhonchi. ABDOMEN: Soft, mild tenderness in lower abdomen no guarding or rebound no distention EXTREMITIES: Normal range of motion, no clubbing or edema. Neurovascularly intact NEUROLOGICAL: Alert and oriented x4.Normal gait and speech. SKIN: Warm, dry, no laceration, no petechiae, no rashes or lesions. Course Orders Ordered: ED Orders 03/11/24 23:40 EKG-12 Lead Stat 03/11/24 23:44 Complete Blood Count AUTO DIFF Stat Comprehensive Metabolic Panel Stat Lipase Stat 03/12/24 03:00 CT abdomen pelvis w con Stat Discontinued Medications Hydrocodone Bitart/Acetaminophen (Hydrocodone/Acet 5/325 Prepack) 1 bottle MISC DIRECTED ONE Stop: 03/12/24 04:19 Last Admin: 03/12/24 04:28 Dose: 1 bottle Documented By: Hydromorphone HCl (Hydromorphone 0.5 Mg Inj) 0.5 mg IV NOW ONE Stop: 03/12/24 01:20 Last Admin: 03/12/24 01:26 Dose: 0.5 mg Documented By: Ketorolac Tromethamine (Ketorolac 30 Mg/Ml Vial) 15 mg IV NOW ONE Stop: 03/11/24 23:52 Last Admin: 03/11/24 23:55 Dose: 15 mg Documented By: REBECCA Ondansetron HCl (Ondansetron 4 Mg/2 Ml Inj) 4 mg IV NOW PRN PRN Reason: Nausea And Vomiting Last Admin: 03/11/24 23:52 Dose: 4 mg Documented By: REBECCA Ondansetron HCl (Ondansetron 4 Mg Odt) 4 mg PO NOW PRN PRN Reason: Nausea And Vomiting Ondansetron HCl (Ondansetron 4 Mg Odt Prepack) 1 bottle MISC NOW ONE Stop: 03/12/24 04:19 Last Admin: 03/12/24 04:28 Dose: 1 bottle Documented By: Vital Signs Vital signs: Vital Signs - 8 hr 03/11/24 23:33 03/12/24 02:11 03/12/24 02:30 Temperature 97.6 F Pulse Rate 60 56 L 58 L Respiratory Rate 22 Blood Pressure 176/80 H Pulse Oximetry 99 94 95 Oxygen Delivery Method Room Air 03/12/24 02:30 03/12/24 03:00 03/12/24 04:26 Temperature Pulse Rate 61 73 Respiratory Rate 18 Blood Pressure 162/83 H 134/82 Pulse Oximetry 95 97 Oxygen Delivery Method Room Air MDM - Abdominal Pain Lab Data 03/11/24 23:44 03/11/24 23:44 Labs: Lab Results 03/11/24 Range/Units 23:44 WBC 10.4 (4.5-11.0) X10^3/uL RBC 4.43 L (4.5-5.9) X10^6/uL Hgb 14.5 (13.5-17.5) g/dL Hct 40.9 L (41-53) % MCV 92.2 (80-100) fL MCH 32.8 (26-34) PG MCHC 35.5 (30-36) % RDW 12.9 (11.6-14.8) % Plt Count 305 (150-400) X10^3/uL Neut % (Auto) 70.7 (50-75) % Lymph % (Auto) 15.9 L (25-40) % Lewis % (Auto) 10.9 (3-14) % Eos % (Auto) 1.8 L (2-4) % Baso % (Auto) 0.7 (0-2) % Neut # (Auto) 7400 H (0648-2301) /uL Lymph # (Auto) 1700 (9026-8707) /uL Lewis # (Auto) 1100 H (0-900) /uL Eos # (Auto) 200 (0-450) /uL Baso # (Auto) 100 (0-100) /uL Sodium 136 L (137-145) mmol/L Potassium 3.2 L (3.4-5.1) mmol/L Chloride 105 (98-107) mmol/L Carbon Dioxide 21 L (22-32) mmol/L BUN 18 (9-20) mg/dL Creatinine 0.98 (0.66-1.25) mg/dL Estimated GFR > 60 (>60) mL/min BUN/Creatinine Ratio 18.4 (6-22) Glucose 180 H (80-110) mg/dL Calcium 9.3 (8.4-10.2) mg/dL Total Bilirubin 0.8 (0.2-1.3) mg/dL AST 28 (17-59) IU/L ALT 23 (<50) IU/L Alkaline Phosphatase 72 (38-126) U/L Total Protein 7.3 (6.3-8.2) g/dL Albumin 4.6 (3.5-5.0) g/dL Globulin 2.7 (1.7-4.1) g/dL Albumin/Globulin Ratio 1.7 (1.0-2.8) Lipase 107 (23-300) U/L Point of care testing: Urine Dip Bedside Urine Glucose Negative Bedside Urine Bilirubin - Negative Bedside Urine Ketone - Negative Urine Specific [place] 1.010 Bedside Urine Occult Blood - Negative Bedside Urine pH 8.0 Bedside Urine Protein - Negative Bedside Urine Urobilinogen - Negative Bedside Urine Nitrite - Negative Bedside Urine Leukocytes - Negative Esterase ECG Data Attestation: I personally reviewed and interpreted this ECG as follows: Prior ECG tracings: available for review Interpretation: Normal sinus rhythm rate 61 OR interval 212 QRS 104 QTC 459 no ischemic changes, similar MDM Narrative Medical decision making narrative: MDM CC: Abdominal pain vomiting Complicating co-morbidities: Lymphoma Medical records reviewed: Oncology last ED visit PCP no Differential considered: Recurrence of cancer bowel obstruction Exam documented above, pertinent findings include: Mild tenderness lower abdomen otherwise appears better after pain medication Lab Test results independently reviewed as above. Pertinent findings: WBC 10.4, hemoglobin 14.5, hematocrit 40.9, platelets 305 , sodium 136, potassium 3.2, carbon dioxide 21 BUN 18 creatinine 0.98, bilirubin 0.8, AST 28, ALT 23, alk- phos 17, lipase 107 Independently reviewed EKG as above first-degree AV block new from previous but no ischemia Imaging studies independently reviewed: CT preliminary report a questionable gallbladder thickening ill-defined stranding noted at root of mesentery associated with prominent yet subcentimeter mesenteric lymph nodes findings may be related to mesenteric carcinoma provided history however mesenteric panniculitis could also have this appearance Prior CT does show mild transient left mesentery with no enlarged lymph nodes or masses. Consultations: None Treatments: Dilaudid, Toradol Re-evaluations: Pain significantly improved Discussion: Patient presenting today with sudden onset of abdominal pain similar to a couple months ago. He has no evidence of obstruction on CT. He has no significant leukocytosis or fever. Pain is very well-controlled with Dilaudid and Toradol. CT does show possible panniculitis. He is given prepack of [place] he is set to follow-up with his providers in 2 weeks. I do not think antibiotics indicated this time. Discharge Plan Departure Patient Disposition: Home Clinical Impression: Abdominal pain Instructions: DI for Abdominal Pain-Adult Activity Restrictions/Additional Instructions: *You have been diagnosed with abdominal pain *What to do: At this time blood work and CT scan are overall reassuring. I do recommend outpatient follow-up. You may require colonoscopy *Continue to take medications as directed [place] 1 tablet every 6 hours if needed for severe pain Zofran 4 mg every 6-8 hours if needed for nausea or vomiting *Follow up with your primary care provider in 2-3 days or call [phone] *Return to ER if you should have increasing pain persistent vomiting or any new, worsening or concerning symptoms CONTROLLED SUBSTANCE DISCHARGE (Narcotoic/benzodiazepine/Flexeril/Phenergan) 1. You have been prescribed narcotic medications, it does have acetaminophen/Tylenol/paracetamol in it, DO NOT TAKE MORE THAN 4,00mg in 24 hours of Tylenol. TRAMADOL DOES NOT CONTAIN TYLENOL 2. Please understand that we cannot provide further refills of narcotics, benzodiazepines or controlled substances through the ED and her pain management will need to be through your provider. 3. While on these medications you cannot drive or operate heavy machinery. 4. You cannot sign legal documents or perform any duties such as this. 5. As long as you're taking opiate pain medications he should also be taking a stool softener such as Colace, Dulcolax, MiraLAX or prune juice, to help avoid constipation. Prescriptions: New hydrocodone-acetaminophen 5-325 mg tablet 1 tab PO Q6H PRN (Reason: pain) Qty: 10 0RF ondansetron 4 mg tablet,disintegrating 4 mg PO Q8H PRN (Reason: nausea and vomiting) Qty: 20 0RF No Action amoxicillin 500 mg capsule 500 mg PO BID Qty: 20 0RF ibuprofen 200 mg Tablet 400 mg PO Q6H PRN (Reason: Pain (Scale Score 4-6)) clobetasol 0.05 % Cream 1 applic TOPICAL DAILY acetaminophen [Tylenol] 325 mg capsule 1,000 mg PO QD-BID PRN (Reason: pain) cholecalciferol (vitamin D3) [Vitamin D3] 25 mcg (1,000 unit) tablet 25 mcg PO DAILY multivitamin Tablet 1 tab PO DAILY Fish Oil 120-180 mg Capsule 1 cap PO DAILY Referrals: Vipin Gee MD [Primary Care Provider] - Stand Alone Forms: Patient Portal/API
[2024-03-12 03:00] VITALS: PULSE 61; O2SAT 95
--- NOTE | 2024-03-12 03:00 | DI.CT.S_ITS ---
PROCEDURE: CT ABDOMEN PELVIS W CON INDICATIONS: pain vomiting hx of mesenteric cancer TECHNIQUE: After the administration of intravenous contrast, axial sections acquired from the lung bases to the pubic symphysis. Coronal and sagittal reformats were performed. For radiation dose reduction, the following was used: automated exposure control, adjustment of mA and/or kV according to patient size. COMPARISON: [facility], CT, CT ABDOMEN PELVIS W CON, 01/15/2024, 2:35. [facility], CT, CT ABDOMEN PELVIS W CON, 10/12/2020, 11:53. FINDINGS: Image quality: Diagnostic. Lower Chest: No significant findings. ABDOMEN: Liver: No solid mass. Gallbladder: There is possible gallbladder wall thickening. No radiodense gallstones seen. Biliary ducts: No biliary dilation. Pancreas: No ductal dilation. Spleen: Size is within normal limits. Adrenal Glands: No adrenal nodules. Kidneys and Ureters: No hydronephrosis. No solid mass. No complex renal cystic lesion which requires follow up. Stomach and Bowel: Normal colonic caliber, without significant wall thickening. Minimal circumferential wall thickening of the descending colon likely related to incomplete distension. No significant inflammatory changes. No evidence for bowel obstruction. Peritoneum: No abnormal free fluid or free air. Redemonstration of mild, ill-defined stranding noted at the root of the mesentery with several prominent but subcentimeter mesenteric lymph nodes. These are not significantly changed compared to the prior study. No enlarging mass lesions or adenopathy. Ventral Wall: There is a fat-containing umbilical hernia without acute inflammation. Abdominal Nodes: No retroperitoneal or mesenteric adenopathy by size criteria. Vessels: Aorta and inferior vena cava are normal in size. PELVIS: Pelvic Organs: Unremarkable. Bladder: No bladder wall thickening, accounting for underdistention. Pelvic Nodes: No enlarged lymph nodes. Miscellaneous: No inguinal hernias are seen. Bones: No aggressive osseous abnormality. No acute vertebral body compression fractures. Multilevel spondylitic changes throughout the imaged spine. No suspicious osseous lesions. IMPRESSION: 1. Possible gallbladder wall thickening. Recommend clinical correlation for acute cholecystitis. Consider further evaluation with right upper quadrant ultrasound as indicated. 2. Redemonstration of mild ill-defined stranding of the root of the mesentery with associated prominent subcentimeter mesenteric lymph nodes. Findings may be related to mesenteric carcinoma given reported history. However, mesenteric panniculitis may have a similar appearance. 3. Other chronic findings as above. No significant discrepancy with the night supervisor radiology preliminary report. Dictated by: Ildefonso Navarro M.D. on 03/12/2024 at 9:03 Approved by: Ildefonso Navarro M.D. on 03/12/2024 at 9:11
[2024-03-12 04:26] VITALS: BP 134/82; PULSE 73; RESP 18; O2SAT 97
[2024-03-12] MEDS: ONDANSETRON 4 MG ODT PREPACK 1 BOTTLE MISC (04:28)
[2024-03-12] MEDS: HYDROCODONE/ACET 5/325 PREPACK 1 BOTTLE MISC (04:28)
== END 2024-03-12 04:32 | disposition home or self-care (01) ==
PROVIDERS: Emergency Provider Emergency Medicine; PCP Internal Medicine
DX: R10.9 Unspecified abdominal pain (principal); R11.2 Nausea with vomiting, unspecified
CPT/HCPCS: 36415; 74177; 80053; 81003; 83690; 85025; 93005; 96374; 96375; 99284; J1170; J1885; J2405; Q9967

== ENCOUNTER → 2024-03-18 08:16 | Outpatient (CLI) | payer MEDICARE, SELFPAY ==
--- NOTE | 2024-03-18 08:17 | DI.US.S_ITS ---
PROCEDURE: US ABDOMEN COMPLETE INDICATIONS: RUQ pain TECHNIQUE: Real-time scanning was performed of the abdominal and retroperitoneal organs, with image documentation. COMPARISON: [facility], CT, CT ABDOMEN PELVIS W CON, 03/12/2024, 3:08. FINDINGS: Liver: Liver is normal in size and increased in echotexture. Scattered areas of presumed fat sparing are present. Gallbladder: Stones are present within the gallbladder. Wall thickness measures 4.1 mm. Pericholecystic fluid is present. Biliary ducts: Intrahepatic bile ducts are non-dilated. Extrahepatic bile duct caliber measures 5.5 mm. Normal is 6-7 mm or less in diameter, or 10 mm or less post-cholecystectomy. Pancreas: Visualized portions of the pancreas are sonographically normal. Miscellaneous: No free abdominal fluid. IMPRESSION: Cholelithiasis with thickened wall and pericholecystic fluid highly suggestive cholecystitis. Prominent hepatic steatosis. Dictated by: Ivet Cruz M.D. on 03/18/2024 at 17:39 Approved by: Ivet Cruz M.D. on 03/18/2024 at 17:40
== END ==
LOC: US 08:17
PROVIDERS: PCP Internal Medicine; Referring Provider Internal Medicine; Visit Provider Internal Medicine
DX: K80.20 Calculus of gallbladder without cholecystitis without obstruction (principal); K76.0 Fatty (change of) liver, not elsewhere classified; R10.9 Unspecified abdominal pain
CPT/HCPCS: 76700

== ENCOUNTER 2024-05-02 02:23 | Inpatient (IN) | payer MEDICARE, SELFPAY ==
[2024-05-02] VITALS (22 sets, daily range): BP systolic 126–201; BP diastolic 75–95; PULSE 50–82; RESP 10–22; TEMP 35.9–37.3; O2SAT 91–100; BMI 27.6
--- NOTE | 2024-05-02 | PATH_ITS ---
[facility] Accession Number: [id number] No. of containers..01 Tissue . 01 Material submitted: . gallbladder - GALLBLADDER . 01 Diagnosis: GALLBLADDER, CHOLECYSTECTOMY: Acute cholecystitis with congestion, mucosal ulceration and reactive changes. Negative for dysplasia and malignancy. [facility] 05/06/2024 1456 Local . 01 Electronically signed: . Elizabeth Dumas MD, Pathologist NPI- [id number] . 01 Gross description: . Received in formalin with two patient identifiers and gallbladder, is a partial gallbladder (5.3 x 3.0 x 2.1 cm) with a full thickness defect at one end with no cystic duct grossly identified. The presumed margin at the defect is inked blue, and the remaining serosa is violaceous and roughened. Minimal bile and no calculi are identified in the lumen or the container. The mucosa is brown and ragged, and no yellow discoloration, polyps, or lesions identified. The muhammad average 0.3 cm thick. Microbiology Coordinator sections to include the margin en face and full thickness sections are submitted in A1-A2. ([id number]) /MRV 05/03/2024 1645 Local . 01 Pathologist provided ICD-10: K81.0 . 01 CPT . 748353 Specimen Comment: A courtesy copy of this report has been sent to [phone] Performed at: [address] [facility] [address], [place], [place] [id number] MD Juan Daniel North MD Phone: [phone]
[2024-05-02] MEDS: KETOROLAC 30 MG/ML VIAL 15 MG IV (02:39)
[2024-05-02] MEDS: ONDANSETRON 4 MG/2 ML INJ IV ×2 (02:39→15:06)
--- NOTE | 2024-05-02 02:49 | ED.GENADULT ---
HPI - General Adult General Chief complaint: Abdominal Pain Stated complaint: gall bladder Time Seen by Provider: 05/02/24 02:24 Source: patient and family Mode of arrival: Ambulatory History of Present Illness HPI narrative: Patient is a 69-year-old male. History of lymphoma although he did have an outpatient PET scan and labs done with a past 24 hours which showed no recurrence of the lymphoma. Earlier this year he was seen here in the emergency department for right upper quadrant abdominal pain. He was found to have cholelithiasis. Had an outpatient ultrasound which showed thickened abdominal wall but had normal LFTs. He stated that his symptoms improved and he did not follow-up with general surgery. Last evening he ate some Indonesian food that was rather greasy. He stated that he had some discomfort in his abdomen which significantly worsened proximally 2 hours prior to arrival here in the ER. No vomiting. No fevers. Pain is located in the upper abdomen. No change in bowel habits. No urinary symptoms. Related Data Home Medications Medication Instructions Recorded Confirmed ibuprofen 200 mg tablet 400 mg PO Q6H PRN Pain (Scale 10/21/20 03/13/24 Score 4-6) clobetasol 0.05 % topical cream 1 applic topical DAILY 04/13/22 03/13/24 acetaminophen 325 mg capsule 1,000 mg PO QD-BID PRN pain 05/25/22 03/13/24 (Tylenol) cholecalciferol (vitamin D3) 25 25 mcg PO DAILY 05/25/22 03/13/24 mcg (1,000 unit) tablet (Vitamin D3) multivitamin 1 tab PO DAILY 05/25/22 03/13/24 docosahexaenoic acid (dha)-epa 120 1 cap PO DAILY 01/04/23 03/13/24 mg-180 mg capsule (Fish Oil) Previous Rx's Medication Instructions Recorded amoxicillin 500 mg capsule 500 mg PO BID #20 caps 03/03/24 hydrocodone 5 mg-acetaminophen 325 1 tab PO Q6H PRN pain #10 tabs 03/12/24 mg tablet ondansetron 4 mg disintegrating 4 mg PO Q8H PRN nausea and 03/12/24 tablet vomiting #20 tabs Allergies Allergy/AdvReac Type Severity Reaction Status Date / Time No Known Drug Allergies Allergy Verified 03/13/24 08:52 Review of Systems Review of Systems ROS Unobtainable: All systems reviewed & are unremarkable except as noted in HPI and below Patient History Medical History Hearing loss, right Eczematous dermatitis Overweight (BMI 25.0-29.9) Rash History of colonic polyps Mixed hyperlipidemia Wears glasses Chronic back pain Tinnitus DJD (degenerative joint disease) Surgical History Anesthesia H/O needle biopsy (~10/2020) Port-A-Cath in place (~11/2020) H/O arthroscopy of right knee (~10/2015) H/O vasectomy Hx of inguinal herniorrhaphy 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 jew (~2002) Family History Brother Cancer Sister Breast cancer History of mastectomy Other Axillary mass Family history of breast cancer Family history of mastectomy Family hx of lung cancer 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 History 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), 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 Smoking Status: Never smoker alcohol intake: current Smoking Status: Never smoker alcohol intake frequency: a few times a month Substance Use Type: does not use Exam Initial Vital Signs Initial Vital Signs: Vital Signs Blood Pressure 179/87 H 05/02/24 02:30 Const General: cooperative and No ill appearing Resp Effort & Inspection: normal respiratory effort Auscultation: clear to auscultation bilaterally Cardio Rate: regular rate Rhythm: regular rhythm GI Inspection: non-distended Palpation: soft, No firm, guarding and tender (Right upper quadrant with positive Leonard's sign) Skin General: no rashes or lesions noted Neuro General: patient alert, patient awake and moves all extremities Extrem General: capillary refill normal Course Orders Ordered: ED Orders 05/02/24 02:29 US abdomen limited Stat 05/02/24 02:40 Complete Blood Count AUTO DIFF Stat Comprehensive Metabolic Panel Stat Lipase Stat Hydromorphone HCl (Hydromorphone 0.5 Mg Inj) 0.5 mg IV Q2H PRN PRN Reason: Pain, Severe (7-10) Sodium Chloride (Normal Saline 0.9%) 1,000 mls @ 100 mls/hr IV CONT TELLY Ondansetron HCl (Ondansetron 4 Mg/2 Ml Inj) 4 mg IV Q4HR PRN PRN Reason: Nausea And Vomiting Discontinued Medications Hydromorphone HCl (Hydromorphone 1 Mg Inj) 1 mg IV NOW ONE Stop: 05/02/24 03:20 Last Admin: 05/02/24 03:27 Dose: 1 mg Documented By: Ketorolac Tromethamine (Ketorolac 30 Mg/Ml Vial) 15 mg IV NOW ONE Stop: 05/02/24 02:29 Last Admin: 05/02/24 02:39 Dose: 15 mg Documented By: FILIPPO Ondansetron HCl (Ondansetron 4 Mg/2 Ml Inj) 4 mg IV NOW ONE Stop: 05/02/24 02:29 Last Admin: 05/02/24 02:39 Dose: 4 mg Documented By: FILIPPO Vital Signs Vital signs: Vital Signs - 8 hr 05/02/24 02:30 05/02/24 02:31 05/02/24 02:32 Temperature 96.6 F L Pulse Rate 56 L 57 L Respiratory Rate 22 Blood Pressure 179/87 H 180/87 H Pulse Oximetry 100 100 Oxygen Delivery Method Room Air 05/02/24 03:00 05/02/24 03:00 05/02/24 03:30 Temperature Pulse Rate 58 L 68 Respiratory Rate Blood Pressure 201/95 H Pulse Oximetry 99 100 Oxygen Delivery Method Room Air 05/02/24 03:31 05/02/24 03:31 05/02/24 04:00 Temperature Pulse Rate 61 64 Respiratory Rate Blood Pressure 171/86 H Pulse Oximetry 100 97 Oxygen Delivery Method Room Air 05/02/24 04:01 05/02/24 04:01 Temperature Pulse Rate 53 L Respiratory Rate Blood Pressure 181/88 H Pulse Oximetry 97 Oxygen Delivery Method Medical Decision Making Medical Records Medical records reviewed: Yes I reviewed the patient's medical records. Lab Data Lab results reviewed: Yes I reviewed the patient's lab results. 05/02/24 02:40 05/02/24 02:40 Labs: Lab Results 05/02/24 Range/Units 02:40 WBC 6.5 (4.5-11.0) X10^3/uL RBC 4.37 L (4.5-5.9) X10^6/uL Hgb 14.2 (13.5-17.5) g/dL Hct 40.2 L (41-53) % MCV 92.0 (80-100) fL MCH 32.5 (26-34) PG MCHC 35.3 (30-36) % RDW 13.7 (11.6-14.8) % Plt Count 254 (150-400) X10^3/uL Neut % (Auto) 52.3 (50-75) % Lymph % (Auto) 28.1 (25-40) % [place] % (Auto) 15.5 H (3-14) % Eos % (Auto) 3.1 (2-4) % Baso % (Auto) 1.0 (0-2) % Neut # (Auto) 3400 (6689-2328) /uL Lymph # (Auto) 1800 (6191-8814) /uL [place] # (Auto) 1000 H (0-900) /uL Eos # (Auto) 200 (0-450) /uL Baso # (Auto) 100 (0-100) /uL Sodium 136 L (137-145) mmol/L Potassium 2.9 L (3.4-5.1) mmol/L Chloride 104 (98-107) mmol/L Carbon Dioxide 22 (22-32) mmol/L BUN 19 (9-20) mg/dL Creatinine 0.96 (0.66-1.25) mg/dL Estimated GFR > 60 (>60) mL/min BUN/Creatinine Ratio 19.8 (6-22) Glucose 158 H (80-110) mg/dL Calcium 9.1 (8.4-10.2) mg/dL Total Bilirubin 0.9 (0.2-1.3) mg/dL AST 27 (17-59) IU/L ALT 25 (<50) IU/L Alkaline Phosphatase 67 (38-126) U/L Total Protein 6.9 (6.3-8.2) g/dL Albumin 4.3 (3.5-5.0) g/dL Globulin 2.6 (1.7-4.1) g/dL Albumin/Globulin Ratio 1.7 (1.0-2.8) Lipase 103 (23-300) U/L Imaging Data US - abdomen: Radiologist's Impression: Distended gallbladder with moderate amount of sludge and questionable tiny stones. Positive sonographic Leonard's. Acute cholecystitis can not be excluded and clinical correlation with HIDA scan recommended MDM Narrative Medical decision making narrative: Patient does not have a leukocytosis and not febrile. His LFTs and bilirubin and lipase are unremarkable. He does have a history of biliary colic. Earlier this year had an ultrasound which showed cholelithiasis and distended gallbladder and thickened gallbladder wall but his symptoms resolved afterwards until earlier this evening where he was the same symptoms/worsening symptoms is what he did earlier this year. He was very uncomfortable upon arrival. Has a positive Leonard's sign. Does not have a surgical abdomen. Right upper quadrant ultrasound shows distended gallbladder with moderate amount of sludge. Having a difficult time controlling the patient's symptoms with medications here in the ER. He was not vomiting. I discussed the case with Dr. valenzuela on-call for General surgery. We will admit. Will keep NPO. Pain control. I have discussions about operative treatment with the patient later this morning with general surgery. Discussed the need for admission with the patient. He expressed understanding and agreement with plan. Discharge Plan Departure Patient Disposition: Admitted as Observation Clinical Impression: Recurrent biliary colic Admit Date/Time: 05/02/24 04:37 Admit Provider: Efrain Valenzuela
[2024-05-02 02:50] LABS: Add Manual Diff / Slide Review NO; Basophils Absolute Auto 100 /uL (0-100); Eosinophils Absolute Auto 200 /uL (0-450); Eosinophils Percent Auto 3.1 % (2-4); Hematocrit 40.2 % (41-53); Hemoglobin 14.2 g/dL (13.5-17.5); Lymphocytes Absolute Auto 1800 /uL (1100-4500); Lymphocytes Percent Auto 28.1 % (25-40); Mean Corpuscular HGB Conc 35.3 % (30-36); Mean Corpuscular Hemoglobin 32.5 PG (26-34); Monocytes Absolute Auto 1000 /uL (0-900); Monocytes Percent Auto 15.5 % (3-14); Neutrophils Absolute Auto 3400 /uL (1500-7000); Neutrophils Percent Auto 52.3 % (50-75); Platelet Count 254 X10^3/uL (150-400); Red Blood Cell Count 4.37 X10^6/uL (4.5-5.9); Red Cell Distribution Width 13.7 % (11.6-14.8); White Blood Cell Count 6.5 X10^3/uL (4.5-11.0)
[2024-05-02 03:01] LABS: Alanine Aminotransferase 25 IU/L (<50); Albumin 4.3 g/dL (3.5-5.0); Albumin Globulin Ratio 1.7 (1.0-2.8); Alkaline Phosphatase 67 U/L (38-126); Aspartate Aminotransferase 27 IU/L (17-59); BUN Creatinine Ratio 19.8 (6-22); Bilirubin Total 0.9 mg/dL (0.2-1.3); Blood Urea Nitrogen 19 mg/dL (9-20); Calcium 9.1 mg/dL (8.4-10.2); Carbon Dioxide 22 mmol/L (22-32); Chloride 104 mmol/L (98-107); Estimated Glomerular Filt Rate > 60 mL/min (>60); Globulin 2.6 g/dL (1.7-4.1); Glucose 158 mg/dL (80-110); HEMOLYSIS < 15 (0-50); Lipase 103 U/L (23-300); Potassium 2.9 mmol/L (3.4-5.1); Sodium 136 mmol/L (137-145); Total Protein 6.9 g/dL (6.3-8.2)
[2024-05-02] MEDS: HYDROMORPHONE 1 MG INJ IV ×2 (03:27→14:57)
--- NOTE | 2024-05-02 03:31 | PC.NURSE ---
Pt c/o severe pain. Dr Donis notified. New orders received.
[2024-05-02] MEDS: HYDROMORPHONE 0.5 MG INJ IV ×4 (04:52→14:57)
[2024-05-02] MEDS: SODIUM CHLORIDE 0.9% 1,000 ML 100 ML IV ×2 (05:21→18:23)
--- NOTE | 2024-05-02 13:41 | CM.DANOTE ---
Initial DCP Assessment Visit Note Reviewed EMR and team rounds for status updates. Met with pt at bedside to introduce self and role, pt was found to be alert/oriented, stating that he's still in significant pain since his admission last night. Pt resides independently with his in their own home in [place]. His will be transporting him home once he's medically cleared for d/c. Payor: Medicare PCP: Dr. Gee Attending: Dr. Rivas Pt is a 69 year-old M with a hx of Lymphoma (in remission) who presented to the ED in the early am with c/o a second episode this since the beginning of the year with right upper gastric pain, he had been found to have cholelithiasis during his last ED presentation of upper right abdominal pain. In the ED he states that he had abdominal discomfort following a meal of greasy Vietnamese food, and within 2-hours the pain had become so severe that his drove him for further evaluation. Surgery was consulted, and the plan was made to admit to OBS for pain control, was made NPO, and will have further Surgical consultation later this afternoon to evaluate for the need for surgery or not. DCP will continue to follow and assist with final d/c plan and needs. Discharge Planning/Care Management CM Discharge Assessment Start: 05/02/24 13:37 Freq: Status: Active Protocol: Document 05/02/24 13:37 DPL (Rec: 05/02/24 13:41 DPL [id number]) Discharge Planning Assessment Assigned Workers Compensation Specialist СВЕТЛАНА Min Advance Directives? No History Provided By Patient,Medical Record Has Patient been admitted in last 30 No days? Prior Living Arrangements House Household Members spouse Type of transporation used prior to Drives own vehicle admit Independent with ADL's Yes Is patient alert and oriented? Yes Comment N/A Caregiver for Another No Comment No identified d/c needs at this time. Barriers to Discharge No Discharge Plan Home Transportation Arrangement Spouse Referrals Initiated None needed Whiteboard Updated in Patient Room with Yes name and ext. # of Workers Compensation Specialist Review Status In Process Please Provide Date Initial DC 05/02/24 Assessment Was Performed
--- NOTE | 2024-05-02 14:29 | PM.HP.1 ---
History of Present Illness History of Present Illness Date Patient Seen: 05/02/24 Time Patient Seen: 14:29 Chief complaint: gall bladder Narrative: Juan M is a 69-year-old man who presented with several hours of epigastric and right upper quadrant pain. He has had similar episodes twice in the recent past. He was diagnosed with cholelithiasis during one of the earlier episodes. He has a history of lymphoma that has been successfully treated and he has had a recent PET scan that showed no evidence of recurrence.. 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 yarsanism (~2002) Family History Brother Cancer Sister Breast cancer History of mastectomy Other Axillary mass Family history of breast cancer Family history of mastectomy Family hx of lung cancer 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 History 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), 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 Smoking Status: Never smoker alcohol intake: current Meds Home Medications and Allergies Home Medications Medication Instructions Recorded Confirmed Type ibuprofen 200 mg tablet 400 mg PO Q6H PRN Pain (Scale 10/21/20 05/02/24 History Score 4-6) clobetasol 0.05 % topical cream 1 applic topical DAILY 04/13/22 05/02/24 History acetaminophen 325 mg capsule 1,000 mg PO QD-BID PRN pain 05/25/22 05/02/24 History (Tylenol) cholecalciferol (vitamin D3) 25 25 mcg PO DAILY 05/25/22 05/02/24 History mcg (1,000 unit) tablet (Vitamin D3) multivitamin 1 tab PO DAILY 05/25/22 05/02/24 History docosahexaenoic acid (dha)-epa 120 1 cap PO DAILY 01/04/23 05/02/24 History mg-180 mg capsule (Fish Oil) hydrocodone 5 mg-acetaminophen 325 1 tab PO Q6H PRN pain #10 tabs 03/12/24 05/02/24 Rx mg tablet ondansetron 4 mg disintegrating 4 mg PO Q8H PRN nausea and 03/12/24 05/02/24 Rx tablet vomiting #20 tabs Allergies Allergy/AdvReac Type Severity Reaction Status Date / Time No Known Drug Allergies Allergy Verified 05/02/24 14:49 Exam Vital Signs (past 8 hours): - 05/02/24 09:20 05/02/24 13:14 Temperature 97.9 F 98.3 F Pulse Rate 58 L 67 Respiratory Rate 16 16 Blood Pressure 164/86 H 184/95 H Pulse Oximetry 97 98 Oxygen Flow Rate 0 Oxygen Delivery Method Room Air Oxygen Flow Rate 0 Narrative Exam Narrative: Tender to palpation in the right upper quadrant Objective Labs 05/02/24 02:40 05/02/24 02:40 Labs: Laboratory Results - last 24 hr 05/02/24 02:40 WBC 6.5 RBC 4.37 L Hgb 14.2 Hct 40.2 L MCV 92.0 MCH 32.5 MCHC 35.3 RDW 13.7 Plt Count 254 Neut % (Auto) 52.3 Lymph % (Auto) 28.1 [place] % (Auto) 15.5 H Eos % (Auto) 3.1 Baso % (Auto) 1.0 Neut # (Auto) 3400 Lymph # (Auto) 1800 [place] # (Auto) 1000 H Eos # (Auto) 200 Baso # (Auto) 100 Sodium 136 L Potassium 2.9 L Chloride 104 Carbon Dioxide 22 BUN 19 Creatinine 0.96 Estimated GFR > 60 BUN/Creatinine Ratio 19.8 Glucose 158 H Calcium 9.1 Total Bilirubin 0.9 AST 27 ALT 25 Alkaline Phosphatase 67 Total Protein 6.9 Albumin 4.3 Globulin 2.6 Albumin/Globulin Ratio 1.7 Lipase 103 Assessment & Plan Assessment and plan (1) Acute cholecystitis: Status: Acute Plan We reviewed the risks and benefits of laparoscopic cholecystectomy for acute cholecystitis and he would like to proceed. Time-Based Coding :: [TOTAL MINUTES] spent with patient and on the chart (including review of chart, obtaining history, exam, reviewing outside data, placing orders, documenting exam and treatment plan, and counseling patient) on [DATE].
[2024-05-02] MEDS: LACTATED RINGERS 1,000 ML 42 ML IV ×2 (14:50→16:22)
[2024-05-02] MEDS: PIPERACILLIN/TAZO 4.5 GM in SODIUM CHLORIDE 0.9% 100 ML IV (15:38)
--- NOTE | 2024-05-02 15:49 | SUR.OPER ---
Supine on padded OR bed, head on pillow, safety belt at thigh, bilateral arms secured on padded arm board <90 degrees abduction. Legs uncrossed. Padded footboard in place. Tape over blanket to secure lower legs.
[2024-05-02] MEDS: BUPIVACAINE 0.5% (PF) 30 ML, EPINEPHrine 0.15 MG INJ (16:05)
--- NOTE | 2024-05-02 17:16 | P.OP_ITS ---
Operative Date/Time/Diagnoses Date of procedure: 05/02/24 Time of procedure: 17:16 Pre-op diagnosis: Acute cholecystitis Post-op diagnosis: same Procedure & Clinicians Procedure: Laparoscopic subtotal fenestrating cholecystectomy Same procedure as scheduled: No Surgeon: Prosper Rivas Anesthesia Type: General Operative Notes Procedure in detail: The patient was given preoperative antibiotics. The patient was brought to the operating room and placed on the table in the supine position. General endotracheal anesthesia was induced. The abdomen was prepped and draped. A time-out was performed. We made a 1 cm infraumbilical incision. We dissected down to the base of the umbilical stalk using cautery. We grasped the umbilical stalk with a Buck clamp to elevate the abdominal wall. We scored the fascia in the midline with cautery. We pierced the peritoneum with a Peon clamp. The Lexi port was placed and the abdomen was insufflated to 15 mmHg. A 5 mm 30 degree laparoscopic was inserted. There was no evidence of any injury from the entry. Next, we placed 5 mm ports in the subxiphoid position and right upper quadrant at the midclavicular line and anterior axillary line. The patient was then positioned in reverse Trendelenburg and the table was tilted to the left. Gallbladder was inflamed and distended and could not easily grasped. We pierced the gallbladder with a large bore needle and aspirated approximately 30 mL of dark green bile. We then grasped the gallbladder at the dome and retracted it cephalad. There were multiple adhesions mesenteric tissue to the liver gallbladder which were taken down to allow full exposure. The infundibulum of the gallbladder was severely inflamed and could not easily be grasped. We opened thin layer of peritoneum below the infundibulum and it appeared that we were seeing the common bile duct next to the pulsating hepatic artery. There was no injury of these structures or the surrounding tissue. It appeared that the infundibulum was tapering down to what appeared to be the common bile duct and the tissue was extremely inflamed and fibrotic so a decision was made to proceed with a subtotal cholecystectomy. A point was chosen approximately [address] between the infundibulum and the dome of the gallbladder and the cautery was used to divide the anterior wall of the gallbladder. We then dissected the gallbladder off the liver bed. Multiple stones were suctioned out of the gallbladder and the larger stones were placed with the distal gallbladder above the liver. We thoroughly irrigated the right upper quadrant. We placed a 19 round Jh drain through the right lateral port site and into the gallbladder fossa and secured it to the skin with a stitch. We then removed the 2 remaining 5 mm ports under direct vision we removed the Lexi port. The specimen was extracted and sent off the field. We then injected some local into the fascia and closed the fascia with 2 interrupted 0 Vicryl sutures. The skin incisions were closed with 4-0 Monocryl and Steri- Strips were applied. Band-Aids were applied over the Steri-Strips. EBL: 50 mL Specimen: Distal 2/3 of the gallbladder and several fragments stones Post-operative Condition: stable Disposition: PACU
[2024-05-03 05:16] LABS: Add Manual Diff / Slide Review NO; Basophils Absolute Auto 0 /uL (0-100); Eosinophils Absolute Auto 0 /uL (0-450); Hematocrit 37.2 % (41-53); Hemoglobin 12.9 g/dL (13.5-17.5); Lymphocytes Absolute Auto 400 /uL (1100-4500); Lymphocytes Percent Auto 4.9 % (25-40); Mean Corpuscular HGB Conc 34.6 % (30-36); Mean Corpuscular Hemoglobin 32.4 PG (26-34); Mean Corpuscular Volume 93.7 fL (80-100); Monocytes Absolute Auto 1100 /uL (0-900); Monocytes Percent Auto 12.1 % (3-14); Neutrophils Absolute Auto 7700 /uL (1500-7000); Platelet Count 206 X10^3/uL (150-400); Red Blood Cell Count 3.97 X10^6/uL (4.5-5.9); Red Cell Distribution Width 13.9 % (11.6-14.8); White Blood Cell Count 9.2 X10^3/uL (4.5-11.0)
[2024-05-03 05:33] LABS: Alanine Aminotransferase 94 IU/L (<50); Albumin 3.6 g/dL (3.5-5.0); Albumin Globulin Ratio 1.6 (1.0-2.8); Alkaline Phosphatase 44 U/L (38-126); Aspartate Aminotransferase 75 IU/L (17-59); BUN Creatinine Ratio 18.4 (6-22); Bilirubin Total 1.3 mg/dL (0.2-1.3); Blood Urea Nitrogen 19 mg/dL (9-20); Calcium 8.3 mg/dL (8.4-10.2); Carbon Dioxide 21 mmol/L (22-32); Chloride 104 mmol/L (98-107); Estimated Glomerular Filt Rate > 60 mL/min (>60); Globulin 2.3 g/dL (1.7-4.1); Glucose 132 mg/dL (80-110); HEMOLYSIS < 15 (0-50); Potassium 4.3 mmol/L (3.4-5.1); Sodium 134 mmol/L (137-145); Total Protein 5.9 g/dL (6.3-8.2)
[2024-05-03] MEDS: IBUPROFEN 600 MG TABLET PO ×2 (09:12→14:43)
[2024-05-03 09:35] VITALS: BP 160/66; PULSE 70; RESP 16; TEMP 36.6; O2SAT 99
[2024-05-03] MEDS: SENNOSIDES 8.6 MG TABLET PO ×2 (14:40→20:11)
[2024-05-03] MEDS: AMOXICILLIN/CLAV 875/125 MG 1 TAB PO ×2 (14:40→20:11)
--- NOTE | 2024-05-03 14:56 | CM.DPC ---
DCP Continued: Reviewed EMR and team rounds for pt?s medical status. Per provider and nursing notes, pt requires more another day of observation due to laparoscopic cholecystectomy and FIONA drains. No discharge needs identified at this time. Plan: Anticipating discharge home with spouse on Monday, 05/04, or when medically cleared. CM Team will continue to follow for coordination of discharge plans. DENG Hernandes
--- NOTE | 2024-05-03 16:22 | P.PN_ITS ---
Subjective Subjective Date Patient Seen: 05/03/24 Time Patient Seen: 13:00 Interval history: S/p subtotal lap bobby w drain. Exam Vital Signs (past 8 hours): - 05/03/24 09:35 Temperature 97.8 F Pulse Rate 70 Respiratory Rate 16 Blood Pressure 160/66 H Pulse Oximetry 99 Oxygen Delivery Method Room Air Oxygen Flow Rate 0 Narrative Exam Narrative: POD#1 drain is serosang. abdomen distended, no GI function. No infection Objective Labs 05/03/24 04:53 05/03/24 04:53 Labs: Laboratory Results - last 24 hr 05/03/24 04:53 WBC 9.2 RBC 3.97 L Hgb 12.9 L Hct 37.2 L MCV 93.7 MCH 32.4 MCHC 34.6 RDW 13.9 Plt Count 206 Neut % (Auto) 83.0 H D Lymph % (Auto) 4.9 L D [place] % (Auto) 12.1 Eos % (Auto) 0.0 L Baso % (Auto) 0.0 Neut # (Auto) 7700 H Lymph # (Auto) 400 L [place] # (Auto) 1100 H Eos # (Auto) 0 Baso # (Auto) 0 Sodium 134 L Potassium 4.3 D Chloride 104 Carbon Dioxide 21 L BUN 19 Creatinine 1.03 Estimated GFR > 60 BUN/Creatinine Ratio 18.4 Glucose 132 H Calcium 8.3 L Total Bilirubin 1.3 AST 75 H ALT 94 H Alkaline Phosphatase 44 Total Protein 5.9 L Albumin 3.6 Globulin 2.3 Albumin/Globulin Ratio 1.6 PFSH Medical History Hearing loss, right Eczematous dermatitis Overweight (BMI 25.0-29.9) Rash History of colonic polyps Mixed hyperlipidemia Wears glasses Chronic back pain Tinnitus DJD (degenerative joint disease) Surgical History Anesthesia H/O needle biopsy (~10/2020) Port-A-Cath in place (~11/2020) H/O arthroscopy of right knee (~10/2015) H/O vasectomy Hx of inguinal herniorrhaphy 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 synagogue (~2002) Family History Brother Cancer Sister Breast cancer History of mastectomy Other Axillary mass Family history of breast cancer Family history of mastectomy Family hx of lung cancer 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
[2024-05-03 19:59] VITALS: BP 171/90; PULSE 72; RESP 20; TEMP 36.2; O2SAT 95
[2024-05-04] MEDS: IBUPROFEN 600 MG TABLET PO (05:25)
[2024-05-04 05:35] LABS: Alanine Aminotransferase 69 IU/L (<50); Albumin 3.7 g/dL (3.5-5.0); Albumin Globulin Ratio 1.7 (1.0-2.8); Alkaline Phosphatase 50 U/L (38-126); Aspartate Aminotransferase 38 IU/L (17-59); BUN Creatinine Ratio 20.8 (6-22); Bilirubin Total 1.1 mg/dL (0.2-1.3); Blood Urea Nitrogen 21 mg/dL (9-20); Calcium 8.4 mg/dL (8.4-10.2); Carbon Dioxide 23 mmol/L (22-32); Chloride 109 mmol/L (98-107); Estimated Glomerular Filt Rate > 60 mL/min (>60); Globulin 2.2 g/dL (1.7-4.1); Glucose 104 mg/dL (80-110); HEMOLYSIS < 15 (0-50); Potassium 3.8 mmol/L (3.4-5.1); Sodium 140 mmol/L (137-145); Total Protein 5.9 g/dL (6.3-8.2)
[2024-05-04 08:00] VITALS: BP 185/98; PULSE 65; RESP 16; TEMP 36.1; O2SAT 98
[2024-05-04] MEDS: SENNOSIDES 8.6 MG TABLET PO (08:59)
[2024-05-04] MEDS: AMOXICILLIN/CLAV 875/125 MG 1 TAB PO (08:59)
[2024-05-04 09:00] VITALS: BP 166/87; PULSE 70; RESP 16; O2SAT 98
--- NOTE | 2024-05-04 11:14 | P.PN_ITS ---
Subjective Subjective Date Patient Seen: 05/04/24 Time Patient Seen: 11:14 Interval history: s/p subtotal lap bobby with drain. No complications Exam Vital Signs (past 8 hours): - 05/04/24 08:00 05/04/24 08:45 05/04/24 09:00 Temperature 97.0 F L Pulse Rate 65 70 Respiratory Rate 16 16 Blood Pressure 185/98 H 166/87 H Pulse Oximetry 98 98 Oxygen Delivery Method Room Air Oxygen Delivery Method Room Air Oxygen Flow Rate 0 Narrative Exam Narrative: drain is serosang. wounds are dry and intact. Objective Labs 05/03/24 04:53 05/04/24 05:04 Labs: Laboratory Results - last 24 hr 05/04/24 05:04 Sodium 140 Potassium 3.8 Chloride 109 H Carbon Dioxide 23 BUN 21 H Creatinine 1.01 Estimated GFR > 60 BUN/Creatinine Ratio 20.8 Glucose 104 Calcium 8.4 Total Bilirubin 1.1 AST 38 ALT 69 H Alkaline Phosphatase 50 Total Protein 5.9 L Albumin 3.7 Globulin 2.2 Albumin/Globulin Ratio 1.7 PFSH Medical History Hearing loss, right Eczematous dermatitis Overweight (BMI 25.0-29.9) Rash History of colonic polyps Mixed hyperlipidemia Wears glasses Chronic back pain Tinnitus DJD (degenerative joint disease) Surgical History Anesthesia H/O needle biopsy (~10/2020) Port-A-Cath in place (~11/2020) H/O arthroscopy of right knee (~10/2015) H/O vasectomy Hx of inguinal herniorrhaphy 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 mormonism (~2002) Family History Brother Cancer Sister Breast cancer History of mastectomy Other Axillary mass Family history of breast cancer Family history of mastectomy Family hx of lung cancer 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 Teach drain care. May shower with wounds uncovered except for steri strips. steris stay on for 10 days
--- NOTE | 2024-05-04 11:16 | P.DS_ITS ---
History of Present Illness History of Present Illness Date Patient Seen: 05/04/24 Time Patient Seen: 11:17 Chief complaint: gall bladder Narrative: S/P subtotal lap bobby with drain. No complications. Discharge Providers Provider Date of admission: 05/02/24 17:54 Discharge Date: 05/04/24 Primary care physician: Vipin Gee MD Consults: 05/02/24 04:41 Consult to General Surgery Urgent Comment: Consulting Provider: Efrain Eng Reason for consultation: admission Has provider been notified: Yes Discharge provider: Kala Hoffman MD Summary Hospital Course Discharge Diagnosis: S/p subtotal lap bobby for acute cholecystitis Hospital Course: OR for subtotal lap bobby and drain placement. Post op antibiotics of po Augmentin for 5 more days. Normalizing LFTs Status at Discharge Cognitive/behavioral status at discharge: at baseline, oriented Functional status at discharge: independent ambulation Overall status at discharge: patient is progressing back to baseline Time Spent with Patient Time spent: Less than 30 minutes Exam Vital Signs (past 8 hours): - 05/04/24 08:00 05/04/24 08:45 05/04/24 09:00 Temperature 97.0 F L Pulse Rate 65 70 Respiratory Rate 16 16 Blood Pressure 185/98 H 166/87 H Pulse Oximetry 98 98 Oxygen Delivery Method Room Air Oxygen Delivery Method Room Air Oxygen Flow Rate 0 Narrative Exam Narrative: No complication, wound intact. Drain is serosang Objective Labs 05/03/24 04:53 05/04/24 05:04 Labs: Laboratory Results - last 24 hr 05/04/24 05:04 Sodium 140 Potassium 3.8 Chloride 109 H Carbon Dioxide 23 BUN 21 H Creatinine 1.01 Estimated GFR > 60 BUN/Creatinine Ratio 20.8 Glucose 104 Calcium 8.4 Total Bilirubin 1.1 AST 38 ALT 69 H Alkaline Phosphatase 50 Total Protein 5.9 L Albumin 3.7 Globulin 2.2 Albumin/Globulin Ratio 1.7 PENDING SALE TO [facility] Medical History Hearing loss, right Eczematous dermatitis Overweight (BMI 25.0-29.9) Rash History of colonic polyps Mixed hyperlipidemia Wears glasses Chronic back pain Tinnitus DJD (degenerative joint disease) Surgical History Anesthesia H/O needle biopsy (~10/2020) Port-A-Cath in place (~11/2020) H/O arthroscopy of right knee (~10/2015) H/O vasectomy Hx of inguinal herniorrhaphy 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 5 more days of po Augmentin. No heavy lifting (>15 lbs) for 2 weeks. Discharge Plan Discharge Plan Patient Disposition: Home Discharge orders & Medications Prescriptions: New hydrocodone-acetaminophen 5-325 mg Tablet 1 tab PO Q8H PRN (Reason: Pain, Moderate (4-6)) Qty: 14 0RF amoxicillin-pot clavulanate 875-125 mg Tablet 1 tab PO BID Qty: 10 0RF Continued hydrocodone-acetaminophen 5-325 mg tablet 1 tab PO Q6H PRN (Reason: pain) Qty: 10 0RF ondansetron 4 mg tablet,disintegrating 4 mg PO Q8H PRN (Reason: nausea and vomiting) Qty: 20 0RF ibuprofen 200 mg Tablet 400 mg PO Q6H PRN (Reason: Pain (Scale Score 4-6)) clobetasol 0.05 % Cream 1 applic TOPICAL DAILY acetaminophen [Tylenol] 325 mg capsule 1,000 mg PO QD-BID PRN (Reason: pain) cholecalciferol (vitamin D3) [Vitamin D3] 25 mcg (1,000 unit) tablet 25 mcg PO DAILY multivitamin Tablet 1 tab PO DAILY Fish Oil 120-180 mg Capsule 1 cap PO DAILY Follow up/Referrals: Prosper Rivas MD [Physician] - Vipin Gee MD [Primary Care Provider] - Diet/Activity/Treatments Diet: Diet as Tolerated Activity: No lifting greater than 15lbs for 4 weeks Other treatments: drain will be taken out in office at post op appointment. 10 days. call for appointment Skin/Wound/Dressing Care Dressing: remove outer dressing and shower anytime. IF steri strips are present, leave for 10 days Visit Report/Discharge Packet Instructions: How to Use and Care for Your Jonathan-Zurita Drain, DI for Laparoscopic Cholecystectomy Stand Alone Forms: Patient Portal/API, Stroke Signs & Symptoms, Surgery Discharge Discharge Data Primary Care Provider: Vipin Gee V
--- NOTE | 2024-05-04 12:24 | PC.NURSE ---
Pt discharged home at 1225, ambulated off floor escorted by spouse and hospital staff. IV removed, discharge teaching completed including new medications, wound/FIONA drain care, and follow up appointments. Care of FIONA drain extensively reviewed with and pt. Questions answered and concerns addressed. Patient left the floor with all belongings.
--- NOTE | 2024-05-04 14:38 | CM.DPC ---
DCP Discharge Home Per Surgeon, pt tolerating diet and ambulating and pain controlled and medically stable to d/c home with drain in place and to be removed outpt after discharge. Per RN, discharge instructions provided and bedside teach of drain management done with pt and spouse and no concerns noted. Patient taken down to spouse POV. No further needs at this time. СВЕТЛАНА Maria
== END 2024-05-04 12:27 | disposition home or self-care (01) | DRG 419 ==
LOC: ED 02:29 → AC 04:38
PROVIDERS: Surgery; Admitting Provider Surgery; Emergency Provider Emergency Medicine; PCP Internal Medicine; Referring Provider Emergency Medicine; Visit Provider Surgery
PROC: 0FT44ZZ Resection of Gallbladder, Percutaneous Endoscopic Approach (ICD-10-PCS; CPT 47562; principal; 2024-05-02 15:15)
DX: K80.00 Calculus of gallbladder with acute cholecystitis without obstruction (principal); L30.9 Dermatitis, unspecified; G89.29 Other chronic pain; M54.50 Low back pain, unspecified
CPT/HCPCS: 36415; 80053; 83690; 85025; 96374; 96375; 96376; 99284; 99285; G0378; J0171; J1100; J1170; J1885; J2405; J2543; J2704; J3010

== ENCOUNTER → 2024-05-15 09:15 | Outpatient (CLI) | payer MEDICARE, SELFPAY ==
[2024-05-02 05:25] VITALS: BMI 27.6
[2024-05-15 10:09] LABS: Add Manual Diff / Slide Review NO; Basophils Absolute Auto 0 /uL (0-100); Basophils Percent Auto 0.3 % (0-2); Eosinophils Absolute Auto 100 /uL (0-450); Eosinophils Percent Auto 1.8 % (2-4); Hematocrit 41.3 % (41-53); Hemoglobin 14.3 g/dL (13.5-17.5); Lymphocytes Absolute Auto 400 /uL (1100-4500); Lymphocytes Percent Auto 5.5 % (25-40); Mean Corpuscular HGB Conc 34.7 % (30-36); Mean Corpuscular Hemoglobin 32.3 PG (26-34); Monocytes Absolute Auto 900 /uL (0-900); Monocytes Percent Auto 12.5 % (3-14); Neutrophils Absolute Auto 6000 /uL (1500-7000); Neutrophils Percent Auto 79.9 % (50-75); Platelet Count 304 X10^3/uL (150-400); Red Blood Cell Count 4.44 X10^6/uL (4.5-5.9); Red Cell Distribution Width 13.5 % (11.6-14.8); White Blood Cell Count 7.5 X10^3/uL (4.5-11.0)
[2024-05-15 10:39] LABS: Alanine Aminotransferase 695 IU/L (<50); Albumin 4.3 g/dL (3.5-5.0); Albumin Globulin Ratio 1.9 (1.0-2.8); Alkaline Phosphatase 166 U/L (38-126); Aspartate Aminotransferase 331 IU/L (17-59); BUN Creatinine Ratio 12.7 (6-22); Bilirubin Total 5.4 mg/dL (0.2-1.3); Blood Urea Nitrogen 13 mg/dL (9-20); Calcium 9.5 mg/dL (8.4-10.2); Carbon Dioxide 27 mmol/L (22-32); Chloride 103 mmol/L (98-107); Estimated Glomerular Filt Rate > 60 mL/min (>60); Globulin 2.3 g/dL (1.7-4.1); Glucose 112 mg/dL (80-110); HEMOLYSIS < 15 (0-50); Lipase 90 U/L (23-300); Potassium 4.4 mmol/L (3.4-5.1); Sodium 137 mmol/L (137-145); Total Protein 6.6 g/dL (6.3-8.2)
== END ==
PROVIDERS: PCP Internal Medicine; Referring Provider Surgery; Visit Provider Surgery
DX: K81.0 Acute cholecystitis (principal)
CPT/HCPCS: 36415; 80053; 83690; 85025

== ENCOUNTER → 2024-05-15 12:47 | Outpatient (CLI) | payer MEDICARE, SELFPAY ==
[2024-05-02 05:25] VITALS: BMI 27.6
--- NOTE | 2024-05-15 12:49 | DI.CT.S_ITS ---
PROCEDURE: CT ABDOMEN PELVIS W CON INDICATIONS: Abdominal pain TECHNIQUE: After the administration of intravenous contrast, axial sections acquired from the lung bases to the pubic symphysis. Coronal and sagittal reformats were performed. For radiation dose reduction, the following was used: automated exposure control, adjustment of mA and/or kV according to patient size. COMPARISON: [facility], CT, CT ABDOMEN PELVIS W CON, 03/12/2024, 3:08. FINDINGS: Image quality: Diagnostic. Lower Chest: No significant findings. ABDOMEN: Liver: No solid mass. Subcentimeter hypodensity in the hepatic dome is too small to characterize (2/13, stable. Gallbladder: Cholecystectomy. Biliary ducts: No biliary dilation. Mucosal hyperenhancement of the cystic duct stump (2, 3/). Pancreas: No ductal dilation. Spleen: Size is within normal limits. Adrenal Glands: No adrenal nodules. Kidneys and Ureters: No hydronephrosis. No solid mass. No complex renal cystic lesion which requires follow up. Stomach and Bowel: Stomach is decompressed, limiting evaluation, but appears grossly normal. Mild wall thickening of the 1st and 2nd portion of the duodenum. No free air. Mild fat stranding in the right upper quadrant (2/41, 3/24). Small large bowel is normal in caliber, without obstruction. Normal appendix (2/63). Peritoneum: No abnormal intraperitoneal fluid. No free air. Ventral Wall: Tiny fat containing umbilical hernia. Abdominal Nodes: No retroperitoneal or mesenteric adenopathy by size criteria. Vessels: Aorta and inferior vena cava are normal in size. Patent hepatic, portal, splenic and bilateral renal veins. PELVIS: Pelvic Organs: Unremarkable. Bladder: No bladder wall thickening, accounting for underdistention. Pelvic Nodes: No enlarged lymph nodes. Miscellaneous: No inguinal hernias are seen. Bones: No aggressive osseous abnormality. No acute fractures. Mild multilevel degenerative changes of the spine. IMPRESSION: 1. Status post cholecystectomy. Mucosal hyperenhancement of the cystic duct stump which may reflect sequela of infection and/or inflammation. No intra or extrahepatic biliary ductal dilatation. Correlate with LFTs. 2. Mild wall thickening of the 1st and 2nd portions of the duodenum as well as mild fat stranding in the right upper quadrant which may reflect postsurgical change versus infection. Dictated by: Maida Castelan M.D. on 05/16/2024 at 9:38 Approved by: Maida Castelan M.D. on 05/16/2024 at 9:59
== END ==
PROVIDERS: PCP Internal Medicine; Referring Provider Surgery; Visit Provider Surgery
DX: K81.0 Acute cholecystitis (principal); Z90.49 Acquired absence of other specified parts of digestive tract
CPT/HCPCS: 36415; 74177; 80053; 83690; 85025; Q9967

== ENCOUNTER → 2024-05-20 10:04 | Outpatient (CLI) | payer MEDICARE, SELFPAY ==
[2024-05-02 05:25] VITALS: BMI 27.6
[2024-05-20 10:52] LABS: Albumin 3.8 g/dL (3.5-5.0); Albumin Globulin Ratio 1.5 (1.0-2.8); Aspartate Aminotransferase 60 IU/L (17-59); BUN Creatinine Ratio 18.3 (6-22); Blood Urea Nitrogen 17 mg/dL (9-20); Carbon Dioxide 31 mmol/L (22-32); Estimated Glomerular Filt Rate > 60 mL/min (>60); Globulin 2.5 g/dL (1.7-4.1); HEMOLYSIS < 15 (0-50); Total Protein 6.3 g/dL (6.3-8.2)
[2024-05-20 11:34] LABS: Alanine Aminotransferase 214 IU/L (<50); Alkaline Phosphatase 108 U/L (38-126); Bilirubin Total 1.3 mg/dL (0.2-1.3); Chloride 104 mmol/L (98-107); Potassium 4.1 mmol/L (3.4-5.1); Sodium 140 mmol/L (137-145)
[2024-05-20 11:36] LABS: Calcium 9.5 mg/dL (8.4-10.2); Glucose 85 mg/dL (80-110)
== END ==
LOC: LAB 10:05
PROVIDERS: PCP Internal Medicine; Referring Provider Surgery; Visit Provider Surgery
DX: K81.0 Acute cholecystitis (principal)
CPT/HCPCS: 36415; 80053

== ENCOUNTER → 2024-07-03 16:27 | Outpatient (CLI) | payer MEDICARE, SELFPAY ==
[2024-05-02 05:25] VITALS: BMI 27.6
[2024-07-03 18:47] LABS: Alanine Aminotransferase 22 IU/L (<50); Albumin 4.5 g/dL (3.5-5.0); Alkaline Phosphatase 73 U/L (38-126); Aspartate Aminotransferase 24 IU/L (17-59); Blood Urea Nitrogen 27 mg/dL (9-20); Carbon Dioxide 30 mmol/L (22-32); Chloride 105 mmol/L (98-107); Cholesterol 246 mg/dL (140-199); Estimated Glomerular Filt Rate > 60 mL/min (>60); Globulin 2.2 g/dL (1.7-4.1); Glucose 97 mg/dL (80-110); HDL Cholesterol 48 mg/dL (40-60); HEMOLYSIS < 15 (0-50); LDL Cholesterol Calculated 140 mg/dL (<100); Potassium 4.4 mmol/L (3.4-5.1); Sodium 140 mmol/L (137-145); Total Protein 6.7 g/dL (6.3-8.2); Triglycerides 291 mg/dL (35-150)
[2024-07-03 19:17] LABS: Prostate Specific Antigen 2.27 ng/mL (0.10-4.00)
== END ==
PROVIDERS: PCP Internal Medicine; Referring Provider Internal Medicine; Visit Provider Internal Medicine
DX: E78.2 Mixed hyperlipidemia (principal); N40.1 Benign prostatic hyperplasia with lower urinary tract symptoms; N13.8 Other obstructive and reflux uropathy
CPT/HCPCS: 80053; 80061; 84153

== ENCOUNTER → 2025-06-26 09:32 | Outpatient (CLI) | payer MEDICARE, SELFPAY ==
[2024-05-02 05:25] VITALS: BMI 27.6
--- NOTE | 2025-06-26 09:35 | DI.RAD.S_ITS ---
PROCEDURE: XR LUMBAR SPINE 2-3V INDICATIONS: back pain, no trauma TECHNIQUE: 2 views of the lumbar spine were acquired. COMPARISON: 05/15/2024. FINDINGS: Bones: 5 [id number] vertebrae are present. There is normal bony alignment. No vertebral body compression fractures. No suspicious bony lesions. Moderate L3- 4 and L5-S1 and mild L4-5 disc narrowing. Facet arthropathy is most pronounced at L3- 4, L4-5 and L5-S1. Soft tissues: Overlying bowel gas pattern is normal. No suspicious soft tissue calcifications. IMPRESSION: Multilevel degenerative disc disease and facet arthropathy is most pronounced at L3-4, L4-5 and L5-S1. No acute bony abnormality. Dictated by: Sandy Jamison M.D. on 06/26/2025 at 13:51 Approved by: Sandy Jamiosn M.D. on 06/26/2025 at 13:57
== END ==
PROVIDERS: PCP Internal Medicine; Referring Provider Internal Medicine; Visit Provider Internal Medicine
DX: M54.50 Low back pain, unspecified (principal); G89.29 Other chronic pain; M47.816 Spondylosis without myelopathy or radiculopathy, lumbar region; M47.817 Spondylosis without myelopathy or radiculopathy, lumbosacral region; M48.061 Spinal stenosis, lumbar region without neurogenic claudication; M48.07 Spinal stenosis, lumbosacral region
CPT/HCPCS: 72100

== ENCOUNTER → 2025-07-09 08:26 | Outpatient (CLI) | payer MEDICARE, SELFPAY ==
[2024-05-02 05:25] VITALS: BMI 27.6
[2025-07-09 09:06] LABS: Hematocrit 41.4 % (41-53); Hemoglobin 14.5 g/dL (13.5-17.5); Mean Corpuscular HGB Conc 35.1 % (30-36); Mean Corpuscular Hemoglobin 32.3 PG (26-34); Mean Corpuscular Volume 92.0 fL (80-100); Platelet Count 206 X10^3/uL (150-400)
[2025-07-09 09:28] LABS: Blood Urea Nitrogen 17 mg/dL (9-20); Calcium 9.3 mg/dL (8.4-10.2); Carbon Dioxide 27 mmol/L (22-32); Chloride 104 mmol/L (98-107); Cholesterol 219 mg/dL (140-199); Estimated Glomerular Filt Rate > 60 mL/min (>60); Glucose 103 mg/dL (70-99); HDL Cholesterol 55 mg/dL (40-60); HEMOLYSIS < 15 (0-50); Potassium 4.1 mmol/L (3.4-5.1); Sodium 139 mmol/L (137-145); Triglycerides 68 mg/dL (35-150)
[2025-07-09 10:00] LABS: Prostate Specific Antigen 2.27 ng/mL (0.10-4.00)
[2025-07-09 10:03] LABS: TSH w/ Reflex to FT4 2.40 uIU/mL (0.47-4.68)
== END ==
PROVIDERS: PCP Internal Medicine; Referring Provider Internal Medicine; Visit Provider Internal Medicine
DX: E78.2 Mixed hyperlipidemia (principal); N40.1 Benign prostatic hyperplasia with lower urinary tract symptoms; R03.0 Elevated blood-pressure reading, without diagnosis of hypertension; N13.8 Other obstructive and reflux uropathy; I10 Essential (primary) hypertension; C82.90 Follicular lymphoma, unspecified, unspecified site
CPT/HCPCS: 36415; 80048; 80061; 84153; 84443; 84450; 85027